=== PATIENT | female | born 1975 | race Caucasian/White ===

== ENCOUNTER 2016-10-07 17:22 | Emergency (ER) | payer SELFPAY ==
[~2016-10-07] VITALS: Ht 162.6 cm; Wt 136.1 kg
[2016-10-07] MEDS ORDERED: cefTRIAXone 1GM/50ML D5W 50 ML IV ONE (19:15)
[2016-10-07 19:44] LABS: Basophils # (auto) 0 uL; Basophils % (auto) 0.3 % (0.0-2.0); CONDITION Y; Eosinophils # (auto) 0 uL; Hematocrit 32.9 % (36.0-46.0); Lymphocytes % (auto) 20.3 % (10.0-50.0); Mean Corpuscular Hemoglobin 29.3 pg (28.0-32.0); Mean Corpuscular Hgb Conc. 33.3 g/dL (32.0-36.0); Mean Corpuscular Volume 87.8 fL (80.0-100.0); Mean Platelet Volume 8.2 fL (7.4-10.4); Monocytes # (auto) 0.4 uL; Monocytes % (auto) 8.8 % (0.0-12.0); Neutrophils # (auto) 3.4 uL; Neutrophils % (auto) 69.6 % (37.0-80.0); Platelet Count (auto) 265 10^3/uL (140-450); Red Cell Distribution Width 14.3 % (11.6-16.0); White Blood Cell 4.9 10^3/uL (4.4-10.8)
[2016-10-07 19:59] LABS: INR 0.98 (0.9-1.15); Partial Thromboplastin Time 27.8 sec (22.64-33.71); Prothrombin Time 10.7 sec (9.37-12.3)
[2016-10-07 20:09] LABS: BUN/Creatinine Ratio 11.1; Calcium 8.1 mg/dL (8.5-10.1); Potassium 3.8 mmol/L (3.5-5.1)
[2016-10-07 20:11] LABS: Bilirubin, Total 0.8 mg/dL (0.2-1.0); Total Protein 6.6 g/dL (6.4-8.2)
[2016-10-07 20:45] VITALS: BP 100/59
[2016-10-07 21:08] LABS: Urine Bilirubin Negative (Negative); Urine Blood Negative /uL (Negative); Urine Color Yellow (Yellow); Urine Glucose Normal (Normal); Urine Ketone Negative (Negative); Urine Mucus FEW (None Seen); Urine Nitrite Negative (Negative); Urine RBC <1 /hpf (0 - 4); Urine Squamous Epithelial Cell FEW /hpf (<5); Urine Urobilinogen Normal (Negative)
[2016-10-07 22:05] LABS: B-Type Natriuretic Peptide 19.1 pg/mL (0-100)
== END 2016-10-07 23:42 | disposition home or self-care (01) ==
LOC: ER 17:31
DX: L03.116 Cellulitis of left lower limb (principal); L03.115 Cellulitis of right lower limb; D64.9 Anemia, unspecified; E66.01 Morbid (severe) obesity due to excess calories; Z68.43 Body mass index [BMI] 50.0-59.9, adult
CPT/HCPCS: 36415; 71010; 80053; 80307; 81001; 83880; 84484; 85025; 85610; 85730; 93005; 96365; 99285; J0696

== ENCOUNTER 2016-12-06 23:26 | Emergency (ER) | payer MEDICAID ==
[~2016-12-06] VITALS: Ht 167.6 cm; Wt 81.6 kg
[2016-12-06 23:43] VITALS: BP 105/63
[2016-12-07 01:39] LABS: Basophils # (auto) 0 uL; Basophils % (auto) 0.6 % (0.0-2.0); Eosinophils # (auto) 0.1 uL; Eosinophils % (auto) 2.4 % (0.0-7.0); Hematocrit 38.7 % (36.0-46.0); Hemoglobin 12.8 g/dL (12.2-16.2); Lymphocytes # (auto) 1.7 uL; Lymphocytes % (auto) 29.1 % (10.0-50.0); Mean Corpuscular Hemoglobin 28.4 pg (28.0-32.0); Mean Corpuscular Hgb Conc. 33.1 g/dL (32.0-36.0); Mean Corpuscular Volume 85.8 fL (80.0-100.0); Mean Platelet Volume 7.6 fL (6.9-10.8); Monocytes # (auto) 0.4 uL; Monocytes % (auto) 7.3 % (0.0-12.0); Neutrophils # (auto) 3.5 uL; Neutrophils % (auto) 60.6 % (37.0-80.0); Nucleated Red Blood Cells % 0.1 %; Platelet Count (auto) 284 10^3/uL (140-450); Red Cell Distribution Width 14.7 % (11.8-14.3); White Blood Cell 5.8 10^3/uL (4.4-10.8)
[2016-12-07 01:50] LABS: Albumin 3.4 g/dL (3.4-5.0); BUN/Creatinine Ratio 16.7; Calcium 8.5 mg/dL (8.5-10.1); Potassium 3.7 mmol/L (3.5-5.1)
[2016-12-07 01:53] LABS: Bilirubin, Total 0.4 mg/dL (0.2-1.0); Total Protein 7.5 g/dL (6.4-8.2)
[2016-12-07 02:04] LABS: B-Type Natriuretic Peptide 10.5 pg/mL (0-100); Temperature: 22.4 C (20.0-25.0)
[2016-12-07] MEDS ORDERED: IBUPROFEN 600 MG TAB PO ONE (03:00)
[2016-12-07] MEDS ORDERED: BACLOFEN 10 MG TAB PO ONE (03:00)
== END 2016-12-07 03:40 | disposition home or self-care (01) ==
LOC: ER 23:29
DX: S96.912A Strain of unspecified muscle and tendon at ankle and foot level, left foot, initial encounter (principal); R60.0 Localized edema; M79.1 Myalgia; M54.5 Low back pain; E66.9 Obesity, unspecified; Z68.29 Body mass index [BMI] 29.0-29.9, adult; X50.3XXA Overexertion from repetitive movements, initial encounter; Y93.01 Activity, walking, marching and hiking; Y92.89 Other specified places as the place of occurrence of the external cause; Y99.8 Other external cause status
CPT/HCPCS: 36415; 71010; 80053; 83880; 85025

== ENCOUNTER 2016-12-09 02:07 | Emergency (ER) | payer MEDICAID ==
[~2016-12-09] VITALS: Ht 167.6 cm; Wt 129.3 kg
[2016-12-09 02:11] VITALS: BP 141/93
[2016-12-09 02:47] LABS: Basophils # (auto) 0 uL; Basophils % (auto) 0.4 % (0.0-2.0); Eosinophils # (auto) 0.1 uL; Eosinophils % (auto) 2.1 % (0.0-7.0); Hematocrit 36.6 % (36.0-46.0); Hemoglobin 11.8 g/dL (12.2-16.2); Lymphocytes # (auto) 1.6 uL; Lymphocytes % (auto) 27.4 % (10.0-50.0); Mean Corpuscular Hemoglobin 27.8 pg (28.0-32.0); Mean Corpuscular Hgb Conc. 32.3 g/dL (32.0-36.0); Mean Corpuscular Volume 86.1 fL (80.0-100.0); Mean Platelet Volume 7.4 fL (6.9-10.8); Monocytes # (auto) 0.5 uL; Monocytes % (auto) 8.6 % (0.0-12.0); Neutrophils # (auto) 3.6 uL; Neutrophils % (auto) 61.5 % (37.0-80.0); Platelet Count (auto) 252 10^3/uL (140-450); Red Cell Distribution Width 14.9 % (11.8-14.3); White Blood Cell 5.8 10^3/uL (4.4-10.8)
== END 2016-12-09 08:10 | disposition left against medical advice (07) ==
LOC: EDBD 02:07 → ER 02:12
DX: M79.89 Other specified soft tissue disorders (principal); Z53.21 Procedure and treatment not carried out due to patient leaving prior to being seen by health care provider
CPT/HCPCS: 36415; 85025

== ENCOUNTER 2016-12-30 03:15 | Emergency (ER) | payer MEDICAID ==
[~2016-12-30] VITALS: Ht 162.6 cm; Wt 113.4 kg
[2016-12-30 03:18] VITALS: BP 141/76
== END 2016-12-30 07:21 | disposition left against medical advice (07) ==
LOC: EDBD 03:15 → ER 03:15
DX: M79.605 Pain in left leg (principal); M79.604 Pain in right leg; Z53.21 Procedure and treatment not carried out due to patient leaving prior to being seen by health care provider

== ENCOUNTER 2017-01-02 20:54 | Emergency (ER) | payer MEDICAID ==
[~2017-01-02] VITALS: Ht 165.1 cm; Wt 127.0 kg
[2017-01-02 21:10] VITALS: BP 107/53
[2017-01-02 21:36] LABS: Basophils # (auto) 0 uL; Basophils % (auto) 0.5 % (0.0-2.0); Eosinophils # (auto) 0.1 uL; Eosinophils % (auto) 2.3 % (0.0-7.0); Hemoglobin 11.2 g/dL (12.2-16.2); Lymphocytes # (auto) 1.4 uL; Lymphocytes % (auto) 23.7 % (10.0-50.0); Mean Corpuscular Hemoglobin 28.4 pg (28.0-32.0); Mean Corpuscular Volume 86.2 fL (80.0-100.0); Mean Platelet Volume 7.4 fL (6.9-10.8); Monocytes # (auto) 0.5 uL; Monocytes % (auto) 8.3 % (0.0-12.0); Neutrophils # (auto) 3.9 uL; Neutrophils % (auto) 65.2 % (37.0-80.0); Platelet Count (auto) 232 10^3/uL (140-450); Red Cell Distribution Width 14.9 % (11.8-14.3)
[2017-01-02 21:54] LABS: Albumin 3.2 g/dL (3.4-5.0); BUN/Creatinine Ratio 19.8; Bilirubin, Total 0.3 mg/dL (0.2-1.0); Calcium 8.5 mg/dL (8.5-10.1); Potassium 3.6 mmol/L (3.5-5.1)
[2017-01-03 02:29] LABS: B-Type Natriuretic Peptide 12.34 pg/mL (0-100)
[2017-01-03 02:38] LABS: Temperature: 22.2 C (20.0-25.0)
== END 2017-01-03 05:52 | disposition left against medical advice (07) ==
LOC: EDBD 20:54 → ER 20:54
DX: M79.89 Other specified soft tissue disorders (principal); Z53.21 Procedure and treatment not carried out due to patient leaving prior to being seen by health care provider
CPT/HCPCS: 36415; 80053; 83880; 84702; 85025; 85379

== ENCOUNTER 2017-01-03 09:06 | Emergency (ER) | payer MEDICAID ==
[~2017-01-03] VITALS: Ht 167.6 cm; Wt 78.0 kg
[2017-01-03 10:30] VITALS: BP 146/94
[2017-01-03] MEDS ORDERED: SODIUM CHLORIDE 0.9% 1,000 ML IV ONE (12:05)
[2017-01-03 13:54] LABS: Basophils # (auto) 0 uL; Basophils % (auto) 0.5 % (0.0-2.0); Eosinophils # (auto) 0.1 uL; Eosinophils % (auto) 1.9 % (0.0-7.0); Hematocrit 35.6 % (36.0-46.0); Hemoglobin 11.7 g/dL (12.2-16.2); Lymphocytes # (auto) 1.7 uL; Mean Corpuscular Hemoglobin 28.2 pg (28.0-32.0); Mean Corpuscular Hgb Conc. 32.8 g/dL (32.0-36.0); Mean Corpuscular Volume 85.9 fL (80.0-100.0); Monocytes # (auto) 0.5 uL; Monocytes % (auto) 6.8 % (0.0-12.0); Neutrophils # (auto) 5.5 uL; Neutrophils % (auto) 69.8 % (37.0-80.0); Platelet Count (auto) 272 10^3/uL (140-450); Red Blood Cells 4.14 10^6/uL (4.0-5.20); Red Cell Distribution Width 14.6 % (11.8-14.3); White Blood Cell 7.9 10^3/uL (4.4-10.8)
[2017-01-03] MEDS ORDERED: cefTRIAXone W LIDOCAINE 1 GM IM IM ONE (14:30)
[2017-01-03] MEDS ORDERED: LIDOCAINE 1% HCL (LOCAL ANESTH.) INJ 20ML MDV ONE (14:36)
[2017-01-03] MEDS ORDERED: cefTRIAXone SOD 1,000 MG VL ONE (14:37)
== END 2017-01-03 15:14 | disposition home or self-care (01) ==
LOC: ER 09:06
DX: L03.115 Cellulitis of right lower limb (principal); E66.01 Morbid (severe) obesity due to excess calories; Z68.27 Body mass index [BMI] 27.0-27.9, adult
CPT/HCPCS: 36415; 71020; 83735; 84443; 85025; 85379; 93971; 96372; 99285; J0696; J2001

== ENCOUNTER 2017-01-09 23:01 | Emergency (ER) | payer MEDICAID ==
[~2017-01-09] VITALS: Ht 167.6 cm; Wt 132.4 kg
[2017-01-09] MEDS ORDERED: FUROSEMIDE 40 MG TAB PO ONE (23:30)
[2017-01-10 00:30] VITALS: BP 116/82
== END 2017-01-10 01:31 | disposition home or self-care (01) ==
LOC: ER 23:04
DX: R60.9 Edema, unspecified (principal)

== ENCOUNTER 2017-01-18 23:26 | Emergency (ER) | payer MEDICAID ==
[~2017-01-18] VITALS: Ht 162.6 cm; Wt 154.2 kg
[2017-01-19 00:24] LABS: Basophils # (auto) 0 uL; Basophils % (auto) 0.6 % (0.0-2.0); Eosinophils # (auto) 0.2 uL; Eosinophils % (auto) 3.3 % (0.0-7.0); Hematocrit 35.1 % (36.0-46.0); Hemoglobin 11.4 g/dL (12.2-16.2); Lymphocytes # (auto) 1.9 uL; Lymphocytes % (auto) 29.1 % (10.0-50.0); Mean Corpuscular Hemoglobin 27.7 pg (28.0-32.0); Mean Corpuscular Hgb Conc. 32.6 g/dL (32.0-36.0); Mean Corpuscular Volume 84.9 fL (80.0-100.0); Mean Platelet Volume 7.2 fL (6.9-10.8); Monocytes # (auto) 0.5 uL; Monocytes % (auto) 7.9 % (0.0-12.0); Neutrophils # (auto) 3.8 uL; Neutrophils % (auto) 59.1 % (37.0-80.0); Nucleated Red Blood Cells % 0.1 %; Platelet Count (auto) 308 10^3/uL (140-450); Red Cell Distribution Width 14.6 % (11.8-14.3); White Blood Cell 6.4 10^3/uL (4.4-10.8)
[2017-01-19 00:54] LABS: B-Type Natriuretic Peptide 8.13 pg/mL (0-100)
[2017-01-19 00:58] LABS: Temperature: 23.3 C (20.0-25.0)
[2017-01-19 05:25] VITALS: BP 171/106
== END 2017-01-19 07:20 | disposition home or self-care (01) ==
LOC: EDBD 23:26 → ER 23:45
DX: R60.0 Localized edema (principal); E66.01 Morbid (severe) obesity due to excess calories; Z68.43 Body mass index [BMI] 50.0-59.9, adult
CPT/HCPCS: 36415; 83880; 85025

== ENCOUNTER 2017-01-21 01:14 | Emergency (ER) | payer MEDICAID ==
[~2017-01-21] VITALS: Ht 157.5 cm; Wt 127.0 kg
[2017-01-21] MEDS ORDERED: SODIUM CHLORIDE 0.9% 1,000 ML IV ONE (08:13)
[2017-01-21] MEDS ORDERED: FUROSEMIDE 40 MG/4 ML VIAL IV ONE (08:15)
[2017-01-21] MEDS ORDERED: SPIRONOLACTONE 25 MG TAB PO ONE (08:15)
[2017-01-21 09:13] LABS: BUN/Creatinine Ratio 25.4; Calcium 8.5 mg/dL (8.5-10.1); Magnesium 2.1 mg/dL (1.6-2.6); Potassium 4.1 mmol/L (3.5-5.1)
[2017-01-21 09:44] LABS: Basophils # (auto) 0 uL; Basophils % (auto) 0.8 % (0.0-2.0); Eosinophils # (auto) 0.2 uL; Eosinophils % (auto) 3.1 % (0.0-7.0); Hematocrit 40.1 % (36.0-46.0); Lymphocytes # (auto) 1.6 uL; Lymphocytes % (auto) 25.7 % (10.0-50.0); Mean Corpuscular Hemoglobin 27.5 pg (28.0-32.0); Mean Corpuscular Hgb Conc. 32.3 g/dL (32.0-36.0); Mean Corpuscular Volume 85.1 fL (80.0-100.0); Mean Platelet Volume 7.9 fL (6.9-10.8); Monocytes # (auto) 0.5 uL; Monocytes % (auto) 7.9 % (0.0-12.0); Neutrophils % (auto) 62.5 % (37.0-80.0); Platelet Count (auto) 215 10^3/uL (140-450); Red Cell Distribution Width 14.5 % (11.8-14.3); White Blood Cell 6.3 10^3/uL (4.4-10.8)
[2017-01-21 09:51] LABS: Urine RBC None Seen /hpf (0 - 4)
[2017-01-21 10:22] LABS: Urine Bilirubin Negative (Negative); Urine Blood Negative /uL (Negative); Urine Color Yellow (Yellow); Urine Glucose Normal (Normal); Urine Ketone Negative (Negative); Urine Nitrite Negative (Negative); Urine Squamous Epithelial Cell FEW /hpf (<5); Urine Urobilinogen Normal (Negative)
[2017-01-21 10:41] LABS: Platelet Estimate Adequate; RBC Morphology Normal
[2017-01-21 12:00] VITALS: BP 116/62
== END 2017-01-21 12:53 | disposition home or self-care (01) ==
LOC: EDBD 01:14 → ER 01:14
DX: R60.0 Localized edema (principal); E66.01 Morbid (severe) obesity due to excess calories; Z68.43 Body mass index [BMI] 50.0-59.9, adult
CPT/HCPCS: 36415; 80048; 81001; 83735; 85025; 96361; 96374; 99285; J1940; J7030

== ENCOUNTER 2017-02-01 23:22 | Emergency (ER) | payer MEDICAID ==
[~2017-02-01] VITALS: Ht 177.8 cm; Wt 136.1 kg
[2017-02-02] MEDS ORDERED: SODIUM CHLORIDE 0.9% 1,000 ML IV ONE (06:43)
[2017-02-02] MEDS ORDERED: CLINDAMYCIN 900MG IV 50 ML IV ONE (06:45)
[2017-02-02 07:33] LABS: Basophils # (auto) 0 uL; Basophils % (auto) 0.8 % (0.0-2.0); Eosinophils # (auto) 0.1 uL; Eosinophils % (auto) 2.6 % (0.0-7.0); Hemoglobin 11.6 g/dL (12.2-16.2); Lymphocytes # (auto) 1.6 uL; Lymphocytes % (auto) 28.6 % (10.0-50.0); Mean Corpuscular Hemoglobin 27.9 pg (28.0-32.0); Mean Corpuscular Hgb Conc. 32.1 g/dL (32.0-36.0); Mean Platelet Volume 7.5 fL (6.9-10.8); Monocytes # (auto) 0.5 uL; Monocytes % (auto) 9.9 % (0.0-12.0); Neutrophils # (auto) 3.2 uL; Neutrophils % (auto) 58.1 % (37.0-80.0); Platelet Count (auto) 235 10^3/uL (140-450); White Blood Cell 5.6 10^3/uL (4.4-10.8)
[2017-02-02 08:13] VITALS: BP 109/52
[2017-02-02 10:00] LABS: BUN/Creatinine Ratio 21.3; Calcium 8.7 mg/dL (8.5-10.1); Magnesium 2.2 mg/dL (1.6-2.6); Potassium 4.5 mmol/L (3.5-5.1)
== END 2017-02-02 14:07 | disposition home or self-care (01) ==
LOC: EDBD 23:22 → ER 23:29
DX: L97.919 Non-pressure chronic ulcer of unspecified part of right lower leg with unspecified severity (principal); L03.115 Cellulitis of right lower limb
CPT/HCPCS: 36415; 80048; 83735; 85025; 96361; 96365; 96366; 99285; J3490

== ENCOUNTER 2017-02-03 09:47 | Emergency (ER) | payer MEDICAID ==
[~2017-02-03] VITALS: Ht 167.6 cm; Wt 131.1 kg
[2017-02-03 12:19] VITALS: BP 124/62
[2017-02-03] MEDS ORDERED: LIDOCAINE 1% HCL (LOCAL ANESTH.) INJ 20ML MDV ONE (12:57)
[2017-02-03] MEDS ORDERED: cefTRIAXone SOD 1,000 MG VL ONE (12:57)
[2017-02-03] MEDS ORDERED: cefTRIAXone W LIDOCAINE 1 GM IM IM ONE (13:00)
== END 2017-02-03 13:47 | disposition home or self-care (01) ==
LOC: ER 09:55
DX: L03.115 Cellulitis of right lower limb (principal)
CPT/HCPCS: 96372; 99283; J0696; J2001

== ENCOUNTER 2017-02-06 00:49 | Emergency (ER) | payer MEDICAID ==
[~2017-02-06] VITALS: Ht 170.2 cm; Wt 127.0 kg
[2017-02-06 02:58] LABS: Basophils # (auto) 0 uL; Basophils % (auto) 0.5 % (0.0-2.0); Eosinophils # (auto) 0.1 uL; Eosinophils % (auto) 2.5 % (0.0-7.0); Hematocrit 35.6 % (36.0-46.0); Hemoglobin 11.7 g/dL (12.2-16.2); Lymphocytes # (auto) 1.8 uL; Lymphocytes % (auto) 30.2 % (10.0-50.0); Mean Corpuscular Hemoglobin 27.9 pg (28.0-32.0); Mean Corpuscular Hgb Conc. 32.9 g/dL (32.0-36.0); Mean Corpuscular Volume 84.7 fL (80.0-100.0); Mean Platelet Volume 7.4 fL (6.9-10.8); Monocytes # (auto) 0.5 uL; Monocytes % (auto) 8.3 % (0.0-12.0); Neutrophils # (auto) 3.4 uL; Neutrophils % (auto) 58.5 % (37.0-80.0); Nucleated Red Blood Cells % 0.1 %; Platelet Count (auto) 244 10^3/uL (140-450); Red Cell Distribution Width 15.5 % (11.8-14.3); White Blood Cell 5.8 10^3/uL (4.4-10.8)
[2017-02-06 03:14] LABS: Albumin 3.4 g/dL (3.4-5.0); BUN/Creatinine Ratio 20.3; Bilirubin, Total 0.6 mg/dL (0.2-1.0); Calcium 8.6 mg/dL (8.5-10.1); Potassium 3.9 mmol/L (3.5-5.1); Total Protein 7.3 g/dL (6.4-8.2)
[2017-02-06 04:27] LABS: Temperature: 21.1 C (20.0-25.0)
[2017-02-06 08:20] VITALS: BP 96/42
[2017-02-06] MEDS ORDERED: FUROSEMIDE 20 MG TAB PO ONE (08:30)
== END 2017-02-06 08:49 | disposition home or self-care (01) ==
LOC: ER 00:50
DX: R60.0 Localized edema (principal)
CPT/HCPCS: 36415; 80053; 83880; 85025

== ENCOUNTER 2017-02-24 20:19 | Emergency (ER) | payer MEDICAID ==
[~2017-02-24] VITALS: Ht 160 cm; Wt 117.9 kg
[2017-02-24 20:50] VITALS: BP 128/47
[2017-02-24 22:37] LABS: Basophils # (auto) 0 uL; Basophils % (auto) 0.7 % (0.0-2.0); Eosinophils # (auto) 0.1 uL; Eosinophils % (auto) 2.6 % (0.0-7.0); Hematocrit 35.5 % (36.0-46.0); Hemoglobin 11.7 g/dL (12.2-16.2); Lymphocytes # (auto) 1.5 uL; Lymphocytes % (auto) 45.6 % (10.0-50.0); Mean Corpuscular Hemoglobin 27.8 pg (28.0-32.0); Mean Corpuscular Hgb Conc. 32.9 g/dL (32.0-36.0); Mean Corpuscular Volume 84.6 fL (80.0-100.0); Mean Platelet Volume 7.3 fL (6.9-10.8); Monocytes # (auto) 0.4 uL; Monocytes % (auto) 10.7 % (0.0-12.0); Neutrophils # (auto) 1.3 uL; Neutrophils % (auto) 40.4 % (37.0-80.0); Nucleated Red Blood Cells % 0.7 %; Platelet Count (auto) 218 10^3/uL (140-450); Red Cell Distribution Width 14.8 % (11.8-14.3); White Blood Cell 3.3 10^3/uL (4.4-10.8)
[2017-02-24 22:51] LABS: Albumin 3.2 g/dL (3.4-5.0); Calcium 8.2 mg/dL (8.5-10.1); Potassium 3.8 mmol/L (3.5-5.1)
[2017-02-24 22:52] LABS: Bilirubin, Total 0.2 mg/dL (0.2-1.0); Total Protein 7.3 g/dL (6.4-8.2)
== END 2017-02-25 07:54 | disposition left against medical advice (07) ==
LOC: ER 20:19
DX: M79.662 Pain in left lower leg (principal); M79.661 Pain in right lower leg; Z53.21 Procedure and treatment not carried out due to patient leaving prior to being seen by health care provider
CPT/HCPCS: 36415; 80053; 84702; 85025

== ENCOUNTER 2017-03-02 21:47 | Emergency (ER) | payer MEDICAID ==
[~2017-03-02] VITALS: Ht 157.5 cm; Wt 113.4 kg
[2017-03-03 02:09] LABS: Basophils # (auto) 0 uL; Basophils % (auto) 0.3 % (0.0-2.0); Eosinophils # (auto) 0.1 uL; Eosinophils % (auto) 1.9 % (0.0-7.0); Hematocrit 35.1 % (36.0-46.0); Hemoglobin 11.6 g/dL (12.2-16.2); Lymphocytes # (auto) 1.9 uL; Lymphocytes % (auto) 30.3 % (10.0-50.0); Mean Corpuscular Hemoglobin 27.6 pg (28.0-32.0); Mean Corpuscular Hgb Conc. 32.9 g/dL (32.0-36.0); Monocytes # (auto) 0.4 uL; Monocytes % (auto) 7.2 % (0.0-12.0); Neutrophils # (auto) 3.7 uL; Neutrophils % (auto) 60.3 % (37.0-80.0); Nucleated Red Blood Cells % 0.1 %; Platelet Count (auto) 275 10^3/uL (140-450); Red Blood Cells 4.18 10^6/uL (4.0-5.20); Red Cell Distribution Width 14.8 % (11.8-14.3); White Blood Cell 6.1 10^3/uL (4.4-10.8)
[2017-03-03 02:16] LABS: Albumin 3.3 g/dL (3.4-5.0); Calcium 8.4 mg/dL (8.5-10.1); Potassium 3.9 mmol/L (3.5-5.1)
[2017-03-03 02:19] LABS: BUN/Creatinine Ratio 28.4
[2017-03-03 02:22] LABS: Bilirubin, Total 0.3 mg/dL (0.2-1.0); Total Protein 7.3 g/dL (6.4-8.2)
[2017-03-03 08:58] VITALS: BP 106/58
== END 2017-03-03 14:53 | disposition left against medical advice (07) ==
LOC: ER 21:47
DX: M79.89 Other specified soft tissue disorders (principal); Z53.21 Procedure and treatment not carried out due to patient leaving prior to being seen by health care provider
CPT/HCPCS: 36415; 80053; 84702; 85025

== ENCOUNTER 2017-03-03 20:13 | Emergency (ER) | payer MEDICAID ==
[~2017-03-03] VITALS: Ht 165.1 cm; Wt 127.9 kg
[2017-03-03 21:13] LABS: Basophils # (auto) 0 uL; Basophils % (auto) 0.2 % (0.0-2.0); Eosinophils # (auto) 0.1 uL; Eosinophils % (auto) 2.5 % (0.0-7.0); Hematocrit 37.4 % (36.0-46.0); Hemoglobin 12.1 g/dL (12.2-16.2); Lymphocytes # (auto) 1.6 uL; Lymphocytes % (auto) 28.5 % (10.0-50.0); Mean Corpuscular Hemoglobin 27.4 pg (28.0-32.0); Mean Corpuscular Hgb Conc. 32.4 g/dL (32.0-36.0); Mean Corpuscular Volume 84.5 fL (80.0-100.0); Monocytes # (auto) 0.5 uL; Monocytes % (auto) 9.7 % (0.0-12.0); Neutrophils # (auto) 3.3 uL; Neutrophils % (auto) 59.1 % (37.0-80.0); Platelet Count (auto) 317 10^3/uL (140-450); Red Blood Cells 4.43 10^6/uL (4.0-5.20); Red Cell Distribution Width 15.1 % (11.8-14.3); White Blood Cell 5.6 10^3/uL (4.4-10.8)
[2017-03-03 21:26] LABS: Albumin 3.6 g/dL (3.4-5.0); BUN/Creatinine Ratio 28.7; Bilirubin, Total 0.3 mg/dL (0.2-1.0); Calcium 8.6 mg/dL (8.5-10.1); Potassium 4.1 mmol/L (3.5-5.1); Total Protein 7.8 g/dL (6.4-8.2)
[2017-03-04 08:18] VITALS: BP 101/55
[2017-03-04] MEDS ORDERED: FUROSEMIDE 20 MG TAB PO ONE (08:45)
[2017-03-04] MEDS ORDERED: SPIRONOLACTONE 25 MG TAB PO ONE (08:45)
[2017-03-04] MEDS ORDERED: FUROSEMIDE 20 MG TAB ONE (08:51)
== END 2017-03-04 10:23 | disposition home or self-care (01) ==
LOC: ER 20:13
DX: I87.2 Venous insufficiency (chronic) (peripheral) (principal); R60.0 Localized edema; E66.9 Obesity, unspecified; Z68.42 Body mass index [BMI] 45.0-49.9, adult
CPT/HCPCS: 36415; 80053; 81002; 83880; 85025

== ENCOUNTER 2017-03-05 17:37 | Emergency (ER) | payer MEDICAID ==
[2017-03-06 07:59] VITALS: BP 115/70
== END 2017-03-06 07:58 | disposition home or self-care (01) ==
LOC: ER 17:39
DX: L03.115 Cellulitis of right lower limb (principal); L03.116 Cellulitis of left lower limb

== ENCOUNTER 2017-03-09 23:24 | Inpatient (IN) | payer MEDICAID ==
[~2017-03-09] VITALS: Ht 157.5 cm; Wt 149.3 kg
[2017-03-10] MEDS ORDERED: CEFTRIAXONE SODIUM 2 GM in D5W 5% 50 ML IV ONE (01:45)
[2017-03-10] MEDS ORDERED: cefTRIAXone 1GM/10ml IVPUSH 20 ML IV ONE (02:07)
[2017-03-10 02:15] LABS: Basophils # (auto) 0 uL; Basophils % (auto) 0.4 % (0.0-2.0); Eosinophils # (auto) 0.1 uL; Eosinophils % (auto) 2.6 % (0.0-7.0); Hematocrit 34.6 % (36.0-46.0); Hemoglobin 11.4 g/dL (12.2-16.2); Lymphocytes # (auto) 1.7 uL; Lymphocytes % (auto) 29.5 % (10.0-50.0); Mean Corpuscular Hemoglobin 27.7 pg (28.0-32.0); Mean Corpuscular Volume 83.7 fL (80.0-100.0); Monocytes # (auto) 0.5 uL; Monocytes % (auto) 9.4 % (0.0-12.0); Neutrophils # (auto) 3.3 uL; Neutrophils % (auto) 58.1 % (37.0-80.0); Nucleated Red Blood Cells % 0.1 %; Platelet Count (auto) 298 10^3/uL (140-450); Red Blood Cells 4.14 10^6/uL (4.0-5.20); Red Cell Distribution Width 14.9 % (11.8-14.3); White Blood Cell 5.7 10^3/uL (4.4-10.8)
[2017-03-10 02:31] LABS: Alanine Aminotransferase 15 U/L (13-56); Albumin 3.2 g/dL (3.4-5.0); Anion Gap 6 (5-15); Aspartate Aminotransferase 9 U/L (15-37); BUN/Creatinine Ratio 28.1; Blood Urea Nitrogen 18 mg/dL (7-18); Calcium 8.2 mg/dL (8.5-10.1); Carbon Dioxide 28 mmol/L (21-32); Chloride 104 mmol/L (98-107); GFR African American 130 mL/min; GFR Non-African American 107 mL/min; Glucose 93 mg/dL (74-106); Sodium 138 mmol/L (136-145)
[2017-03-10 02:33] LABS: INR 0.92 (0.9-1.15); Partial Thromboplastin Time 27.9 sec (22.64-33.71)
[2017-03-10 02:36] LABS: Alkaline Phosphatase 55 U/L (45-117); Bilirubin, Total 0.4 mg/dL (0.2-1.0)
[2017-03-10] MEDS ORDERED: ACETAMINOPHEN 325 MG TAB PO PRN (06:45)
[2017-03-10] MEDS ORDERED: ONDANSETRON HCL 4 MG/2 ML VIAL IV PRN (06:45)
[2017-03-10] MEDS ORDERED: HYDROcodone-ACET 5/325MG TAB PO PRN (06:45)
[2017-03-10] MEDS: ENOXAPARIN SOD 40 MG/0.4 ML SYRINGE SC SCH (08:52)
[2017-03-10] MEDS: CLINDAMYCIN 600MG IV 50 ML IV SCH ×3 (08:52→23:55)
[2017-03-10] MEDS: FUROSEMIDE 40 MG TAB PO SCH (08:53)
[2017-03-10] MEDS: FAMOTIDINE 20 MG TAB PO SCH ×2 (08:53→21:46)
[2017-03-10 09:55] VITALS: BP 120/67
[2017-03-10 10:00] VITALS: BP 120/69
[2017-03-10 13:00] VITALS: BP 134/69
[2017-03-10 13:15] VITALS: BP 134/69
[2017-03-10 17:00] VITALS: BP 102/67
[2017-03-10 22:00] VITALS: BP 114/51
[2017-03-11 05:00] VITALS: BP 118/69
[2017-03-11 06:56] LABS: Urine Bacteria NONE SEEN /hpf (None Seen); Urine Blood 1+ /uL (Negative); Urine Specific Gravity 1.011 (1.001-1.035); Urine WBC <1 /hpf (0 - 5)
[2017-03-11 08:00] VITALS: BP 99/55
[2017-03-11 08:10] VITALS: BP 99/55
[2017-03-11 08:57] LABS: Basophils # (auto) 0 uL; Basophils % (auto) 0.3 % (0.0-2.0); Eosinophils # (auto) 0.1 uL; Eosinophils % (auto) 2.4 % (0.0-7.0); Hematocrit 37.4 % (36.0-46.0); Hemoglobin 12.3 g/dL (12.2-16.2); Lymphocytes # (auto) 1.4 uL; Mean Corpuscular Hemoglobin 27.7 pg (28.0-32.0); Mean Corpuscular Hgb Conc. 32.8 g/dL (32.0-36.0); Mean Corpuscular Volume 84.4 fL (80.0-100.0); Monocytes # (auto) 0.4 uL; Monocytes % (auto) 8.7 % (0.0-12.0); Neutrophils % (auto) 60.6 % (37.0-80.0); Nucleated Red Blood Cells % 0.2 %; Platelet Count (auto) 305 10^3/uL (140-450); Red Blood Cells 4.43 10^6/uL (4.0-5.20); Red Cell Distribution Width 15.1 % (11.8-14.3); White Blood Cell 4.9 10^3/uL (4.4-10.8)
[2017-03-11] MEDS: CLINDAMYCIN 600MG IV 50 ML IV SCH ×2 (08:59→15:03)
[2017-03-11] MEDS: BOOST PLUS 8 ounce PO SCH ×3 (09:00→17:45)
[2017-03-11] MEDS: FUROSEMIDE 40 MG TAB PO SCH (09:00)
[2017-03-11] MEDS: cefTRIAXone 1GM/10ml IVPUSH 10 ML IV SCH (09:00)
[2017-03-11] MEDS: FAMOTIDINE 20 MG TAB PO SCH ×2 (09:01→22:03)
[2017-03-11] MEDS: ENOXAPARIN SOD 40 MG/0.4 ML SYRINGE SC SCH (09:01)
[2017-03-11 09:28] LABS: Albumin 3.2 g/dL (3.4-5.0); BUN/Creatinine Ratio 21.8; Bilirubin, Total 0.5 mg/dL (0.2-1.0); Calcium 8.5 mg/dL (8.5-10.1); Potassium 4.1 mmol/L (3.5-5.1); Total Protein 7.2 g/dL (6.4-8.2)
[2017-03-11 12:00] VITALS: BP 111/59
[2017-03-11] MEDS ORDERED: SPIR25TA89 PO (16:13)
[2017-03-11] MEDS ORDERED: FURO40TA PO (16:13)
[2017-03-11 17:13] VITALS: BP 110/84
[2017-03-11 22:00] VITALS: BP 121/60
[2017-03-12] MEDS: CLINDAMYCIN 600MG IV 50 ML IV SCH ×2 (00:22→08:31)
[2017-03-12 04:42] VITALS: BP 132/70
[2017-03-12 07:56] LABS: Basophils # (auto) 0 uL; Basophils % (auto) 0.4 % (0.0-2.0); Eosinophils # (auto) 0.2 uL; Eosinophils % (auto) 3.7 % (0.0-7.0); Hematocrit 33.9 % (36.0-46.0); Hemoglobin 11.1 g/dL (12.2-16.2); Lymphocytes # (auto) 1.2 uL; Lymphocytes % (auto) 29.6 % (10.0-50.0); Mean Corpuscular Hemoglobin 27.6 pg (28.0-32.0); Mean Corpuscular Hgb Conc. 32.8 g/dL (32.0-36.0); Mean Corpuscular Volume 84.3 fL (80.0-100.0); Monocytes # (auto) 0.4 uL; Monocytes % (auto) 9.6 % (0.0-12.0); Neutrophils # (auto) 2.4 uL; Neutrophils % (auto) 56.7 % (37.0-80.0); Nucleated Red Blood Cells % 0.2 %; Platelet Count (auto) 251 10^3/uL (140-450); Red Blood Cells 4.02 10^6/uL (4.0-5.20); Red Cell Distribution Width 15.3 % (11.8-14.3); White Blood Cell 4.2 10^3/uL (4.4-10.8)
[2017-03-12 08:00] VITALS: BP 120/59
[2017-03-12 08:16] LABS: BUN/Creatinine Ratio 23.8; Calcium 8.3 mg/dL (8.5-10.1); Potassium 4.3 mmol/L (3.5-5.1)
[2017-03-12] MEDS: cefTRIAXone 1GM/10ml IVPUSH 10 ML IV SCH (08:32)
[2017-03-12] MEDS: BOOST PLUS 8 ounce PO SCH ×3 (08:32→18:23)
[2017-03-12 09:00] VITALS: BP 120/59
[2017-03-12] MEDS: FUROSEMIDE 40 MG TAB PO SCH (10:04)
[2017-03-12] MEDS: ENOXAPARIN SOD 40 MG/0.4 ML SYRINGE SC SCH (10:04)
[2017-03-12] MEDS: FAMOTIDINE 20 MG TAB PO SCH ×2 (10:04→22:59)
[2017-03-12] MEDS ORDERED: CLINDAMYCIN HCL 150 MG CAP PO ONE (15:00)
[2017-03-12] MEDS ORDERED: CLINDAMYCIN 600MG IV 50 ML IV ONE (15:00)
[2017-03-12 17:15] VITALS: BP 110/63
[2017-03-12] MEDS: CLINDAMYCIN HCL 150 MG CAP PO SCH (20:25)
[2017-03-12 22:00] VITALS: BP 112/65
[2017-03-13 04:56] VITALS: BP 132/68
[2017-03-13 05:52] LABS: Basophils # (auto) 0 uL; Basophils % (auto) 0.6 % (0.0-2.0); Eosinophils # (auto) 0.1 uL; Eosinophils % (auto) 2.3 % (0.0-7.0); Hematocrit 37.2 % (36.0-46.0); Hemoglobin 12.2 g/dL (12.2-16.2); Lymphocytes # (auto) 1.6 uL; Lymphocytes % (auto) 28.1 % (10.0-50.0); Mean Corpuscular Hemoglobin 27.8 pg (28.0-32.0); Mean Corpuscular Hgb Conc. 32.8 g/dL (32.0-36.0); Mean Corpuscular Volume 84.9 fL (80.0-100.0); Monocytes # (auto) 0.5 uL; Neutrophils # (auto) 3.6 uL; Nucleated Red Blood Cells % 0.1 %; Platelet Count (auto) 308 10^3/uL (140-450); Red Blood Cells 4.38 10^6/uL (4.0-5.20); Red Cell Distribution Width 14.9 % (11.8-14.3); White Blood Cell 5.8 10^3/uL (4.4-10.8)
[2017-03-13] MEDS: CLINDAMYCIN HCL 150 MG CAP PO SCH ×2 (05:56→14:00)
[2017-03-13 06:20] LABS: Albumin 3.5 g/dL (3.4-5.0); BUN/Creatinine Ratio 19.2; Calcium 8.9 mg/dL (8.5-10.1); Potassium 3.7 mmol/L (3.5-5.1)
[2017-03-13 06:23] LABS: Bilirubin, Total 0.4 mg/dL (0.2-1.0); Total Protein 7.5 g/dL (6.4-8.2)
[2017-03-13 09:00] VITALS: BP 122/59
[2017-03-13] MEDS: cefTRIAXone 1GM/10ml IVPUSH 10 ML IV SCH (09:00)
[2017-03-13] MEDS: FUROSEMIDE 40 MG TAB PO SCH (10:31)
[2017-03-13] MEDS: ENOXAPARIN SOD 40 MG/0.4 ML SYRINGE SC SCH (10:32)
[2017-03-13] MEDS: FAMOTIDINE 20 MG TAB PO SCH (10:32)
[2017-03-13] MEDS: BOOST PLUS 8 ounce PO SCH ×2 (10:35→13:57)
[2017-03-13 12:00] VITALS: BP 122/59
[2017-03-13 13:00] VITALS: BP 100/57
== END 2017-03-13 14:30 | disposition home or self-care (01) | DRG 383 ==
LOC: ER 23:24 → EDBD 23:24 → OVERFLOW 23:25 → WEST WING 03-10 08:08
PROVIDERS: ADMIT Nurse Practitioner; ATTEND Internal Medicine
DX: L03.115 Cellulitis of right lower limb (principal); I50.32 Chronic diastolic (congestive) heart failure; E44.0 Moderate protein-calorie malnutrition; Z68.44 Body mass index [BMI] 60.0-69.9, adult; E66.01 Morbid (severe) obesity due to excess calories; D64.9 Anemia, unspecified; L03.116 Cellulitis of left lower limb; Z59.0 Homelessness; E88.09 Other disorders of plasma-protein metabolism, not elsewhere classified
CPT/HCPCS: 36415; 71045; 80048; 80053; 81001; 81025; 83880; 84484; 85025; 85610; 85730; 87040; 93306; 93970; 96365; 96375; J0696; J3490; J7060

== ENCOUNTER 2017-03-21 23:27 | Emergency (ER) | payer MEDICAID ==
[~2017-03-21] VITALS: Ht 167.6 cm; Wt 128.8 kg
[~2017-03-21 23:27] MED LIST: FURO40TA PO; SPIR25TA89 PO
[2017-03-22 00:17] LABS: Basophils # (auto) 0 uL; Basophils % (auto) 0.6 % (0.0-2.0); Eosinophils # (auto) 0.1 uL; Eosinophils % (auto) 2.3 % (0.0-7.0); Hematocrit 35.5 % (36.0-46.0); Hemoglobin 11.7 g/dL (12.2-16.2); Lymphocytes # (auto) 1.8 uL; Lymphocytes % (auto) 32.6 % (10.0-50.0); Mean Corpuscular Hemoglobin 27.9 pg (28.0-32.0); Mean Corpuscular Volume 84.5 fL (80.0-100.0); Monocytes # (auto) 0.4 uL; Monocytes % (auto) 7.7 % (0.0-12.0); Neutrophils # (auto) 3.1 uL; Neutrophils % (auto) 56.8 % (37.0-80.0); Nucleated Red Blood Cells % 0.1 %; Platelet Count (auto) 269 10^3/uL (140-450); Red Cell Distribution Width 15.4 % (11.8-14.3); White Blood Cell 5.5 10^3/uL (4.4-10.8)
[2017-03-22 00:35] LABS: Albumin 3.5 g/dL (3.4-5.0); BUN/Creatinine Ratio 23.9; Calcium 8.9 mg/dL (8.5-10.1); Potassium 3.8 mmol/L (3.5-5.1)
[2017-03-22 00:38] LABS: Bilirubin, Total 0.4 mg/dL (0.2-1.0); Total Protein 7.1 g/dL (6.4-8.2)
[2017-03-22] MEDS ORDERED: FUROSEMIDE 40 MG TAB PO ONE (03:45)
[2017-03-22] MEDS ORDERED: cefTRIAXone SOD 1,000 MG VL IM ONE (03:45)
[2017-03-22 04:00] VITALS: BP 100/63
== END 2017-03-22 04:03 | disposition home or self-care (01) ==
LOC: ER 23:27
DX: L03.116 Cellulitis of left lower limb (principal); L03.115 Cellulitis of right lower limb; R60.0 Localized edema; Z59.0 Homelessness
CPT/HCPCS: 36415; 80053; 83880; 84702; 85025; 96372; 99284; J0696

== ENCOUNTER 2017-06-10 22:01 | Emergency (ER) | payer SELFPAY ==
[~2017-06-10] VITALS: Ht 162.6 cm; Wt 108.9 kg
[2017-06-10 22:08] VITALS: BP 130/72
== END 2017-06-11 06:31 | disposition left against medical advice (07) ==
LOC: EDBD 22:01 → ER 22:01
DX: M79.605 Pain in left leg (principal); M79.604 Pain in right leg; Z53.21 Procedure and treatment not carried out due to patient leaving prior to being seen by health care provider

== ENCOUNTER 2017-07-05 06:36 | Emergency (ER) | payer SELFPAY ==
[~2017-07-05] VITALS: Ht 165.1 cm; Wt 129.3 kg
[2017-07-05 08:09] LABS: Basophils # (auto) 0.1 uL; Basophils % (auto) 0.7 % (0.0-2.0); Eosinophils # (auto) 0 uL; Eosinophils % (auto) 0.6 % (0.0-7.0); Hematocrit 40.8 % (36.0-46.0); Hemoglobin 13.7 g/dL (12.2-16.2); Lymphocytes # (auto) 1.6 uL; Lymphocytes % (auto) 19.3 % (10.0-50.0); Mean Corpuscular Hemoglobin 28.6 pg (28.0-32.0); Mean Corpuscular Hgb Conc. 33.7 g/dL (32.0-36.0); Mean Corpuscular Volume 84.9 fL (80.0-100.0); Monocytes # (auto) 0.9 uL; Monocytes % (auto) 10.4 % (0.0-12.0); Neutrophils # (auto) 5.7 uL; Platelet Count (auto) 272 10^3/uL (140-450); Red Cell Distribution Width 15.7 % (11.8-14.3); White Blood Cell 8.3 10^3/uL (4.4-10.8)
[2017-07-05 08:28] LABS: Albumin 3.1 g/dL (3.4-5.0); BUN/Creatinine Ratio 23.7; Calcium 8.4 mg/dL (8.5-10.1); Potassium 3.5 mmol/L (3.5-5.1)
[2017-07-05 08:31] LABS: Total Protein 7.2 g/dL (6.4-8.2)
[2017-07-05 12:30] VITALS: BP 106/58
== END 2017-07-05 12:57 | disposition home or self-care (01) ==
LOC: ER 06:36
DX: R10.30 Lower abdominal pain, unspecified (principal); M79.1 Myalgia; I50.9 Heart failure, unspecified; R11.2 Nausea with vomiting, unspecified; Z79.899 Other long term (current) drug therapy
CPT/HCPCS: 36415; 80053; 85025

== ENCOUNTER 2017-08-16 04:04 | Emergency (ER) | payer SELFPAY ==
[~2017-08-16] VITALS: Ht 160 cm; Wt 122.5 kg
[2017-08-16 06:00] LABS: Basophils # (auto) 0 uL; Basophils % (auto) 0.2 % (0.0-2.0); Eosinophils # (auto) 0.1 uL; Eosinophils % (auto) 1.2 % (0.0-7.0); Hematocrit 38.7 % (36.0-46.0); Hemoglobin 12.7 g/dL (12.2-16.2); Lymphocytes # (auto) 1.7 uL; Lymphocytes % (auto) 19.1 % (10.0-50.0); Mean Corpuscular Hgb Conc. 32.8 g/dL (32.0-36.0); Mean Corpuscular Volume 88.3 fL (80.0-100.0); Monocytes # (auto) 0.7 uL; Monocytes % (auto) 7.8 % (0.0-12.0); Neutrophils # (auto) 6.4 uL; Neutrophils % (auto) 71.7 % (37.0-80.0); Platelet Count (auto) 244 10^3/uL (140-450); Red Blood Cells 4.39 10^6/uL (4.0-5.20); Red Cell Distribution Width 15.2 % (11.8-14.3); White Blood Cell 8.9 10^3/uL (4.4-10.8)
[2017-08-16 06:11] LABS: Albumin 3.4 g/dL (3.4-5.0); BUN/Creatinine Ratio 18.1; Calcium 8.4 mg/dL (8.5-10.1); Potassium 3.6 mmol/L (3.5-5.1)
[2017-08-16 06:14] LABS: Bilirubin, Total 0.6 mg/dL (0.2-1.0); Total Protein 7.4 g/dL (6.4-8.2)
[2017-08-16 06:37] VITALS: BP 149/80
== END 2017-08-16 10:33 | disposition left against medical advice (07) ==
LOC: EDBD 04:04 → ER 04:12
DX: M79.89 Other specified soft tissue disorders (principal); I50.9 Heart failure, unspecified; F17.210 Nicotine dependence, cigarettes, uncomplicated; F15.10 Other stimulant abuse, uncomplicated; Z59.0 Homelessness
CPT/HCPCS: 36415; 80053; 83880; 85025

== ENCOUNTER 2018-02-09 08:54 | Inpatient (IN) | payer SELFPAY ==
[~2018-02-09] VITALS: Ht 165.1 cm; Wt 142.6 kg
[~2018-02-09 08:54] MED LIST changes: +SPIR25TA8 PO; -SPIR25TA89 PO
[2018-02-09 10:17] LABS: Basophils # (auto) 0 uL; Basophils % (auto) 0.5 % (0.0-2.0); Eosinophils # (auto) 0.2 uL; Eosinophils % (auto) 2.9 % (0.0-7.0); Hematocrit 35.8 % (36.0-46.0); Lymphocytes # (auto) 1.2 uL; Mean Corpuscular Hemoglobin 28.9 pg (28.0-32.0); Mean Corpuscular Hgb Conc. 33.5 g/dL (32.0-36.0); Mean Corpuscular Volume 86.5 fL (80.0-100.0); Monocytes # (auto) 0.5 uL; Monocytes % (auto) 8.8 % (0.0-12.0); Neutrophils # (auto) 4.2 uL; Neutrophils % (auto) 68.8 % (37.0-80.0); Nucleated Red Blood Cells % 0.1 %; Platelet Count (auto) 239 10^3/uL (140-450); Red Blood Cells 4.14 10^6/uL (4.0-5.20); Red Cell Distribution Width 14.3 % (11.8-14.3); White Blood Cell 6.1 10^3/uL (4.4-10.8)
[2018-02-09 10:33] LABS: Albumin 3.4 g/dL (3.4-5.0); BUN/Creatinine Ratio 26.6; Calcium 8.6 mg/dL (8.5-10.1); Potassium 4.1 mmol/L (3.5-5.1)
[2018-02-09 10:36] LABS: Bilirubin, Total 0.6 mg/dL (0.2-1.0); Total Protein 7.6 g/dL (6.4-8.2)
[2018-02-09 12:47] LABS: INR 0.89 (0.9-1.15); Partial Thromboplastin Time 29.4 sec (23.78-33.04); Prothrombin Time 9.6 sec (9.27-12.13)
[2018-02-09] MEDS ORDERED: traMADol HCL 50 MG TAB PO PRN (15:15)
[2018-02-09] MEDS ORDERED: PROMETHAZINE HCL 25 MG/ML 1ML IV PRN (15:15)
[2018-02-09] MEDS ORDERED: LACTULOSE 20Gm/30ML SOLN PO PRN (15:15)
[2018-02-09] MEDS ORDERED: TEMAZEPAM 15 MG CAP PO PRN (15:15)
[2018-02-09] MEDS ORDERED: LORazepam 0.5 MG TAB PO PRN (15:15)
[2018-02-09] MEDS ORDERED: KETOROLAC TROMETH 30 MG/ML 1ML VIAL IV PRN (15:15)
[2018-02-09] MEDS ORDERED: ACETAMINOPHEN 500 MG TAB PO PRN (15:15)
[2018-02-09] MEDS: SODIUM CHLORIDE 0.9% 1,000 ML IV SCH (16:27)
[2018-02-09 17:25] VITALS: BP 131/72
[2018-02-09 22:00] VITALS: BP 100/56
[2018-02-09] MEDS: CLINDAMYCIN 600MG IV 50 ML IV SCH (22:22)
[2018-02-10] MEDS: SODIUM CHLORIDE 0.9% 1,000 ML IV SCH ×2 (02:52→14:30)
[2018-02-10 05:00] VITALS: BP 129/53
[2018-02-10] MEDS: CLINDAMYCIN 600MG IV 50 ML IV SCH ×3 (05:19→22:23)
[2018-02-10 06:26] LABS: Cholesterol 100 mg/dL (< 200); HDL Cholesterol 40 mg/dL (40-59); LDL Cholesterol 70 mg/dL (< 100); Triglycerides 54 mg/dL (< 150)
[2018-02-10] MEDS: cefTRIAXone 1GM/50ML D5W 50 ML IV SCH (08:51)
[2018-02-10 09:00] VITALS: BP 118/51
[2018-02-10] MEDS: PANTOPRAZOLE 40 MG TAB PO SCH (09:00)
[2018-02-10] MEDS: ENOXAPARIN SOD 40 MG/0.4 ML SYRINGE SC SCH (09:00)
[2018-02-10 13:00] VITALS: BP 125/68
[2018-02-10 17:00] VITALS: BP 128/68
[2018-02-10 22:00] VITALS: BP 115/42
[2018-02-11 04:51] VITALS: BP 127/65
[2018-02-11] MEDS: CLINDAMYCIN 600MG IV 50 ML IV SCH ×3 (06:18→23:45)
[2018-02-11] MEDS: SODIUM CHLORIDE 0.9% 1,000 ML IV SCH ×2 (07:10→14:57)
[2018-02-11 09:00] VITALS: BP 124/52
[2018-02-11] MEDS: cefTRIAXone 1GM/50ML D5W 50 ML IV SCH (09:00)
[2018-02-11] MEDS: ENOXAPARIN SOD 40 MG/0.4 ML SYRINGE SC SCH (10:00)
[2018-02-11] MEDS: PANTOPRAZOLE 40 MG TAB PO SCH (10:00)
[2018-02-11 13:00] VITALS: BP 71/50
[2018-02-11 17:00] VITALS: BP 129/68
[2018-02-11 18:39] LABS: Urine WBC None Seen /hpf (0 - 5)
[2018-02-11 18:54] LABS: Urine Bacteria NONE SEEN /hpf (None Seen); Urine Blood Negative /uL (Negative); Urine Specific Gravity 1.014 (1.001-1.035)
[2018-02-11 19:01] LABS: Alcohol, Urine < 3.0 mg/dL (0-5); Amphetamine Screen, Urine NEGATIVE (NEGATIVE); Barbiturate Scree,Urine NEGATIVE (NEGATIVE); Benzodiazephine Screen, Urine NEGATIVE (NEGATIVE); Cannabinoid Screen, Urine NEGATIVE (NEGATIVE); Cocaine Screen, Urine NEGATIVE (NEGATIVE); Opiate Scree,Urine NEGATIVE (NEGATIVE); Phencyclidine Screen, Urine NEGATIVE (NEGATIVE)
[2018-02-11 22:00] VITALS: BP 116/60
[2018-02-12 05:00] VITALS: BP 129/54
[2018-02-12] MEDS: CLINDAMYCIN 600MG IV 50 ML IV SCH ×3 (05:24→21:43)
[2018-02-12 08:58] VITALS: BP 120/72
[2018-02-12] MEDS: cefTRIAXone 1GM/50ML D5W 50 ML IV SCH (09:00)
[2018-02-12] MEDS: SODIUM CHLORIDE 0.9% 1,000 ML IV SCH (10:29)
[2018-02-12] MEDS: ENOXAPARIN SOD 40 MG/0.4 ML SYRINGE SC SCH (10:29)
[2018-02-12] MEDS: PANTOPRAZOLE 40 MG TAB PO SCH (10:29)
[2018-02-12 12:57] VITALS: BP 123/71
[2018-02-12] MEDS ORDERED: traMADol HCL 50 MG TAB PO PRN (13:15)
[2018-02-12 17:23] VITALS: BP 128/79
[2018-02-12 21:19] VITALS: BP 133/60
[2018-02-13 05:25] VITALS: BP 102/50
[2018-02-13 05:58] LABS: Basophils # (auto) 0 uL; Basophils % (auto) 0.2 % (0.0-2.0); Eosinophils # (auto) 0.2 uL; Eosinophils % (auto) 3.7 % (0.0-7.0); Hemoglobin 11.7 g/dL (12.2-16.2); Lymphocytes # (auto) 1.3 uL; Lymphocytes % (auto) 28.3 % (10.0-50.0); Mean Corpuscular Hemoglobin 28.8 pg (28.0-32.0); Mean Corpuscular Hgb Conc. 33.4 g/dL (32.0-36.0); Mean Corpuscular Volume 86.3 fL (80.0-100.0); Monocytes # (auto) 0.4 uL; Monocytes % (auto) 8.5 % (0.0-12.0); Neutrophils # (auto) 2.8 uL; Neutrophils % (auto) 59.3 % (37.0-80.0); Nucleated Red Blood Cells % 0.1 %; Platelet Count (auto) 230 10^3/uL (140-450); Red Blood Cells 4.06 10^6/uL (4.0-5.20); Red Cell Distribution Width 14.3 % (11.8-14.3); White Blood Cell 4.7 10^3/uL (4.4-10.8)
[2018-02-13] MEDS: CLINDAMYCIN 600MG IV 50 ML IV SCH ×2 (06:06→14:00)
[2018-02-13 06:13] LABS: Potassium 4.1 mmol/L (3.5-5.1)
[2018-02-13 06:17] LABS: BUN/Creatinine Ratio 20.3; Calcium 8.2 mg/dL (8.5-10.1)
[2018-02-13 08:07] VITALS: BP 128/76
[2018-02-13] MEDS: ENOXAPARIN SOD 40 MG/0.4 ML SYRINGE SC SCH (10:49)
[2018-02-13] MEDS: cefTRIAXone 1GM/50ML D5W 50 ML IV SCH (10:49)
[2018-02-13] MEDS: PANTOPRAZOLE 40 MG TAB PO SCH (10:49)
[2018-02-13] MEDS ORDERED: SACC250C PO (12:12)
[2018-02-13] MEDS ORDERED: CLIN1CAP4 PO (12:12)
[2018-02-13 12:51] VITALS: BP 126/74
[2018-02-13 16:58] VITALS: BP 128/77
[2018-02-13 18:11] VITALS: BP 126/74
== END 2018-02-13 20:15 | disposition home or self-care (01) | DRG 603 ==
LOC: ER 08:54 → OVERFLOW 15:13 → WEST WING 16:51
PROVIDERS: ADMIT Internal Medicine; ATTEND Internal Medicine
DX: L03.115 Cellulitis of right lower limb (principal); I50.32 Chronic diastolic (congestive) heart failure; Z68.43 Body mass index [BMI] 50.0-59.9, adult; E66.01 Morbid (severe) obesity due to excess calories; L03.116 Cellulitis of left lower limb; F17.210 Nicotine dependence, cigarettes, uncomplicated; F41.9 Anxiety disorder, unspecified; D64.9 Anemia, unspecified; F32.9 Major depressive disorder, single episode, unspecified; I87.2 Venous insufficiency (chronic) (peripheral); Z59.0 Homelessness; Z80.3 Family history of malignant neoplasm of breast; Z83.3 Family history of diabetes mellitus
CPT/HCPCS: 36415; 71046; 80048; 80053; 80061; 80307; 81001; 83735; 85025; 85379; 85610; 85652; 85730; 87040; 93970; 96361; 96365; 96375; G0378; J0696; J1885; J3490

== ENCOUNTER 2018-02-13 22:57 | Emergency (ER) | payer MEDICAID ==
[~2018-02-13] VITALS: Ht 162.6 cm; Wt 136.1 kg
[~2018-02-13 22:57] MED LIST changes: +CLIN1CAP4 PO; +SACC250C PO
[2018-02-13 23:11] VITALS: BP 117/87
== END 2018-02-14 01:35 | disposition home or self-care (01) ==
LOC: ER 23:03
DX: L85.3 Xerosis cutis (principal); F17.210 Nicotine dependence, cigarettes, uncomplicated; F15.90 Other stimulant use, unspecified, uncomplicated; Z59.0 Homelessness; Z79.899 Other long term (current) drug therapy

== ENCOUNTER 2018-02-16 21:23 | Emergency (ER) | payer MEDICAID ==
[~2018-02-16] VITALS: Ht 172.7 cm; Wt 181.4 kg
[2018-02-17] MEDS ORDERED: HYDROcodone-ACET 5/325MG TAB PO ONE (02:45)
[2018-02-17 03:19] VITALS: BP 158/83
== END 2018-02-17 03:52 | disposition home or self-care (01) ==
LOC: EDBD 21:23 → ER 21:24
DX: L03.116 Cellulitis of left lower limb (principal); L03.115 Cellulitis of right lower limb; E66.9 Obesity, unspecified; F17.210 Nicotine dependence, cigarettes, uncomplicated; F15.10 Other stimulant abuse, uncomplicated; I50.9 Heart failure, unspecified; Z59.0 Homelessness; Z68.44 Body mass index [BMI] 60.0-69.9, adult

== ENCOUNTER 2018-03-01 08:43 | Emergency (ER) | payer MEDICAID ==
[~2018-03-01] VITALS: Ht 167.6 cm; Wt 154.0 kg
[2018-03-01 09:33] VITALS: BP 121/77
== END 2018-03-01 11:13 | disposition left against medical advice (07) ==
LOC: ER 08:43
DX: M79.672 Pain in left foot (principal); M79.671 Pain in right foot; Z53.21 Procedure and treatment not carried out due to patient leaving prior to being seen by health care provider

== ENCOUNTER 2018-03-02 19:15 | Emergency (ER) | payer MEDICAID ==
[~2018-03-02] VITALS: Ht 165.1 cm; Wt 155.1 kg
[2018-03-02 22:47] LABS: Basophils # (auto) 0 uL; Basophils % (auto) 0.4 % (0.0-2.0); Eosinophils # (auto) 0.2 uL; Eosinophils % (auto) 2.7 % (0.0-7.0); Hematocrit 36.7 % (36.0-46.0); Hemoglobin 12.1 g/dL (12.2-16.2); Lymphocytes # (auto) 1.4 uL; Lymphocytes % (auto) 23.2 % (10.0-50.0); Mean Corpuscular Hemoglobin 28.5 pg (28.0-32.0); Mean Corpuscular Hgb Conc. 32.9 g/dL (32.0-36.0); Mean Corpuscular Volume 86.7 fL (80.0-100.0); Monocytes # (auto) 0.5 uL; Monocytes % (auto) 7.9 % (0.0-12.0); Neutrophils # (auto) 3.8 uL; Neutrophils % (auto) 65.8 % (37.0-80.0); Platelet Count (auto) 283 10^3/uL (140-450); Red Blood Cells 4.23 10^6/uL (4.0-5.20); Red Cell Distribution Width 14.7 % (11.8-14.3); White Blood Cell 5.8 10^3/uL (4.4-10.8)
[2018-03-02 23:04] LABS: Albumin 3.4 g/dL (3.4-5.0); BUN/Creatinine Ratio 22.8; Calcium 8.6 mg/dL (8.5-10.1); Potassium 3.6 mmol/L (3.5-5.1)
[2018-03-02 23:08] LABS: Bilirubin, Total 0.4 mg/dL (0.2-1.0); Total Protein 7.6 g/dL (6.4-8.2)
[2018-03-03 06:16] VITALS: BP 104/50
== END 2018-03-03 06:33 | disposition home or self-care (01) ==
LOC: ER 19:15
DX: L03.116 Cellulitis of left lower limb (principal); L03.115 Cellulitis of right lower limb; F12.90 Cannabis use, unspecified, uncomplicated; F15.90 Other stimulant use, unspecified, uncomplicated; Z79.899 Other long term (current) drug therapy
CPT/HCPCS: 36415; 80053; 83880; 85025

== ENCOUNTER 2018-03-06 19:00 | Emergency (ER) | payer MEDICAID ==
[~2018-03-06] VITALS: Ht 157.5 cm; Wt 158.8 kg
[2018-03-06 19:30] VITALS: BP 127/56
[2018-03-06] MEDS ORDERED: FUROSEMIDE 40 MG/4 ML VIAL IV ONE (20:45)
[2018-03-06] MEDS ORDERED: FUROSEMIDE 40 MG/4 ML VIAL IM ONE (21:00)
[2018-03-06] MEDS ORDERED: IBUPROFEN 800 MG TAB PO ONE (21:30)
== END 2018-03-06 21:26 | disposition home or self-care (01) ==
LOC: ER 19:00
DX: S80.812A Abrasion, left lower leg, initial encounter (principal); R60.9 Edema, unspecified; I50.9 Heart failure, unspecified; F17.210 Nicotine dependence, cigarettes, uncomplicated; F12.10 Cannabis abuse, uncomplicated; F15.10 Other stimulant abuse, uncomplicated; Z79.2 Long term (current) use of antibiotics; X58.XXXA Exposure to other specified factors, initial encounter; Y93.01 Activity, walking, marching and hiking; Y92.89 Other specified places as the place of occurrence of the external cause; Y99.8 Other external cause status
CPT/HCPCS: 96372; 99283; J1940

== ENCOUNTER 2018-03-16 23:36 | Emergency (ER) | payer MEDICAID ==
[~2018-03-16] VITALS: Ht 167.6 cm; Wt 147.6 kg
[2018-03-17] MEDS ORDERED: KETOROLAC TROMETH 60MG/2ML VIAL IM ONE (08:15)
[2018-03-17 09:16] VITALS: BP 110/60
== END 2018-03-17 09:54 | disposition home or self-care (01) ==
LOC: ER 23:36
DX: M54.5 Low back pain (principal); M79.18 Myalgia, other site; E66.9 Obesity, unspecified; Z68.43 Body mass index [BMI] 50.0-59.9, adult
CPT/HCPCS: 96372; 99283; J1885

== ENCOUNTER 2018-03-17 17:20 | Emergency (ER) | payer MEDICAID ==
[~2018-03-17] VITALS: Ht 162.6 cm; Wt 148.3 kg
[2018-03-17] MEDS ORDERED: HYDROcodone-ACET 10/325MG TAB PO ONE (19:00)
[2018-03-17 22:30] VITALS: BP 114/67
== END 2018-03-17 23:22 | disposition home or self-care (01) ==
LOC: ER 17:28
DX: M77.32 Calcaneal spur, left foot (principal); M77.31 Calcaneal spur, right foot; M51.37 Other intervertebral disc degeneration, lumbosacral region
CPT/HCPCS: 72100; 73630

== ENCOUNTER 2018-03-20 19:01 | Emergency (ER) | payer MEDICAID ==
[~2018-03-20] VITALS: Ht 165.1 cm; Wt 147.9 kg
[2018-03-20 20:11] LABS: Basophils # (auto) 0 uL; Basophils % (auto) 0.4 % (0.0-2.0); Eosinophils # (auto) 0.2 uL; Eosinophils % (auto) 2.5 % (0.0-7.0); Hematocrit 38.2 % (36.0-46.0); Hemoglobin 12.4 g/dL (12.2-16.2); Lymphocytes # (auto) 1.6 uL; Lymphocytes % (auto) 21.3 % (10.0-50.0); Mean Corpuscular Hemoglobin 28.6 pg (28.0-32.0); Mean Corpuscular Hgb Conc. 32.6 g/dL (32.0-36.0); Mean Corpuscular Volume 87.8 fL (80.0-100.0); Monocytes # (auto) 0.5 uL; Monocytes % (auto) 6.5 % (0.0-12.0); Neutrophils # (auto) 5.1 uL; Neutrophils % (auto) 69.3 % (37.0-80.0); Nucleated Red Blood Cells % 0.1 %; Platelet Count (auto) 311 10^3/uL (140-450); Red Blood Cells 4.35 10^6/uL (4.0-5.20); Red Cell Distribution Width 14.8 % (11.8-14.3); White Blood Cell 7.4 10^3/uL (4.4-10.8)
[2018-03-20 20:27] LABS: Albumin 3.4 g/dL (3.4-5.0); Anion Gap 10 (5-15); BUN/Creatinine Ratio 16.9; Blood Urea Nitrogen 14 mg/dL (7-18); Calcium 8.4 mg/dL (8.5-10.1); Carbon Dioxide 25 mmol/L (21-32); Chloride 103 mmol/L (98-107); GFR African American > 60 mL/min; GFR Non-African American > 60 mL/min; Glucose 103 mg/dL (74-106); Potassium 3.5 mmol/L (3.5-5.1); Sodium 138 mmol/L (136-145)
[2018-03-20 20:30] LABS: Alanine Aminotransferase 16 U/L (13-56); Alkaline Phosphatase 70 U/L (45-117); Aspartate Aminotransferase 13 U/L (15-37); Bilirubin, Total 0.4 mg/dL (0.2-1.0); Total Protein 7.7 g/dL (6.4-8.2)
[2018-03-21] MEDS ORDERED: cefTRIAXone W LIDOCAINE 1 GM IM IM ONE (01:00)
[2018-03-21] MEDS ORDERED: cefTRIAXone SOD 1,000 MG VL ONE (01:59)
[2018-03-21 03:07] VITALS: BP 102/51
== END 2018-03-21 04:07 | disposition home or self-care (01) ==
LOC: ER 19:05
DX: L03.116 Cellulitis of left lower limb (principal); L03.115 Cellulitis of right lower limb; F17.210 Nicotine dependence, cigarettes, uncomplicated; F41.9 Anxiety disorder, unspecified; I50.9 Heart failure, unspecified; E66.9 Obesity, unspecified; Z68.43 Body mass index [BMI] 50.0-59.9, adult; Z59.0 Homelessness
CPT/HCPCS: 36415; 80053; 84484; 85025; 96372; 99283; J0696

== ENCOUNTER 2018-03-21 22:08 | Emergency (ER) | payer MEDICAID ==
[~2018-03-21] VITALS: Ht 165.1 cm; Wt 148.8 kg
[2018-03-21] MEDS ORDERED: FUROSEMIDE 40 MG TAB PO ONE (23:15)
[2018-03-21] MEDS ORDERED: HYDROcodone-ACET 10/325MG TAB PO ONE (23:15)
[2018-03-21] MEDS ORDERED: POTASSIUM CHL 20 Meq TABLET PO ONE (23:15)
[2018-03-21 23:35] VITALS: BP 115/67
== END 2018-03-22 00:14 | disposition home or self-care (01) ==
LOC: ER 22:08
DX: R60.0 Localized edema (principal); E66.9 Obesity, unspecified; Z68.43 Body mass index [BMI] 50.0-59.9, adult; Z91.14 Patient's other noncompliance with medication regimen

== ENCOUNTER 2018-03-27 22:07 | Emergency (ER) | payer MEDICAID ==
[~2018-03-27] VITALS: Ht 165.1 cm; Wt 158.4 kg
[2018-03-27 22:16] VITALS: BP 121/73
== END 2018-03-28 03:26 | disposition left against medical advice (07) ==
LOC: ER 22:07
DX: M79.672 Pain in left foot (principal); M79.671 Pain in right foot; Z53.21 Procedure and treatment not carried out due to patient leaving prior to being seen by health care provider

== ENCOUNTER 2018-03-30 23:28 | Emergency (ER) | payer MEDICAID | END 2018-03-31 01:29 | disposition left against medical advice (07) | LOC: ER 23:28 | DX: M79.606 Pain in leg, unspecified (principal); Z53.21 Procedure and treatment not carried out due to patient leaving prior to being seen by health care provider ==

== ENCOUNTER 2018-04-07 21:20 | Emergency (ER) | payer SELFPAY ==
[~2018-04-07] VITALS: Ht 172.7 cm; Wt 170.1 kg
[2018-04-07 21:35] VITALS: BP 143/87
== END 2018-04-08 07:57 | disposition left against medical advice (07) ==
LOC: ER 21:20 → EDBD 21:20 → ER 04-08 07:57
DX: L03.116 Cellulitis of left lower limb (principal); L03.115 Cellulitis of right lower limb; F17.210 Nicotine dependence, cigarettes, uncomplicated; F41.9 Anxiety disorder, unspecified; I50.9 Heart failure, unspecified; Z86.2 Personal history of diseases of the blood and blood-forming organs and certain disorders involving the immune mechanism; Z59.0 Homelessness; Z79.899 Other long term (current) drug therapy

== ENCOUNTER 2018-04-16 23:14 | Emergency (ER) | payer MEDICAID ==
[~2018-04-16] VITALS: Ht 167.6 cm; Wt 158.8 kg
[~2018-04-16 23:14] MED LIST changes: +CEPH-37 PO; +FURO40TA4 PO; +POTA8TAB2 PO
[2018-04-17] MEDS ORDERED: SODIUM CHLORIDE 0.9% 1,000 ML IV ONE (07:03)
[2018-04-17 09:11] VITALS: BP 111/44
[2018-04-17 09:53] LABS: Albumin 3.3 g/dL (3.4-5.0); Magnesium 2.1 mg/dL (1.6-2.6); Potassium 4.9 mmol/L (3.5-5.1)
[2018-04-17 09:57] LABS: BUN/Creatinine Ratio 28.2; Bilirubin, Total 0.5 mg/dL (0.2-1.0); Total Protein 7.1 g/dL (6.4-8.2)
== END 2018-04-17 10:52 | disposition left against medical advice (07) ==
LOC: EDBD → ER 23:14
DX: I89.0 Lymphedema, not elsewhere classified (principal); I87.8 Other specified disorders of veins; L30.8 Other specified dermatitis; E66.01 Morbid (severe) obesity due to excess calories; I50.9 Heart failure, unspecified; F17.210 Nicotine dependence, cigarettes, uncomplicated; F41.9 Anxiety disorder, unspecified; Z59.0 Homelessness; Z68.43 Body mass index [BMI] 50.0-59.9, adult
CPT/HCPCS: 36415; 71046; 80053; 83735; 93005

== ENCOUNTER 2018-04-20 21:14 | Emergency (ER) | payer MEDICAID ==
[~2018-04-20] VITALS: Ht 167.6 cm; Wt 153.8 kg
[2018-04-20 22:28] VITALS: BP 138/78
[2018-04-21 02:19] LABS: Basophils # (auto) 0 uL; Basophils % (auto) 0.5 % (0.0-2.0); Eosinophils # (auto) 0.2 uL; Eosinophils % (auto) 3.6 % (0.0-7.0); Hematocrit 39.4 % (36.0-46.0); Hemoglobin 12.7 g/dL (12.2-16.2); Lymphocytes # (auto) 1.6 uL; Lymphocytes % (auto) 26.6 % (10.0-50.0); Mean Corpuscular Hemoglobin 28.4 pg (28.0-32.0); Mean Corpuscular Hgb Conc. 32.4 g/dL (32.0-36.0); Mean Corpuscular Volume 87.8 fL (80.0-100.0); Monocytes # (auto) 0.5 uL; Monocytes % (auto) 7.5 % (0.0-12.0); Neutrophils # (auto) 3.7 uL; Neutrophils % (auto) 61.8 % (37.0-80.0); Platelet Count (auto) 271 10^3/uL (140-450); Red Blood Cells 4.48 10^6/uL (4.0-5.20); Red Cell Distribution Width 14.6 % (11.8-14.3)
[2018-04-21 02:38] LABS: Albumin 3.4 g/dL (3.4-5.0); BUN/Creatinine Ratio 22.9; Calcium 8.1 mg/dL (8.5-10.1); Potassium 3.7 mmol/L (3.5-5.1)
[2018-04-21 02:41] LABS: Bilirubin, Total 0.3 mg/dL (0.2-1.0); Total Protein 7.6 g/dL (6.4-8.2)
== END 2018-04-21 08:32 | disposition left against medical advice (07) ==
LOC: EDBD → ER 21:19
CPT/HCPCS: 36415; 80053; 83880; 85025

== ENCOUNTER 2018-04-21 16:53 | Emergency (ER) | payer MEDICAID ==
[~2018-04-21] VITALS: Ht 167.6 cm; Wt 154.2 kg
[2018-04-21 18:34] VITALS: BP 116/64
== END 2018-04-22 00:50 | disposition home or self-care (01) ==
LOC: EDBD → ER 16:53
DX: R60.0 Localized edema (principal); I50.9 Heart failure, unspecified

== ENCOUNTER 2018-04-22 08:01 | Emergency (ER) | payer MEDICAID ==
[~2018-04-22] VITALS: Ht 160 cm; Wt 155.6 kg
[2018-04-22 08:15] VITALS: BP 142/62
== END 2018-04-22 08:52 | disposition home or self-care (01) ==
LOC: EDBD → ER 08:01
DX: M79.89 Other specified soft tissue disorders (principal); F17.210 Nicotine dependence, cigarettes, uncomplicated; I50.9 Heart failure, unspecified

== ENCOUNTER 2018-04-26 20:14 | Emergency (ER) | payer MEDICAID ==
[~2018-04-26] VITALS: Ht 162.6 cm; Wt 149.7 kg
[2018-04-27 03:15] VITALS: BP 113/63
== END 2018-04-27 03:19 | disposition home or self-care (01) ==
LOC: ER 20:17
DX: L03.116 Cellulitis of left lower limb (principal); L03.115 Cellulitis of right lower limb; E66.01 Morbid (severe) obesity due to excess calories; I50.9 Heart failure, unspecified; F41.9 Anxiety disorder, unspecified; F17.210 Nicotine dependence, cigarettes, uncomplicated; Z59.0 Homelessness; Z68.43 Body mass index [BMI] 50.0-59.9, adult; Z79.2 Long term (current) use of antibiotics; Z79.899 Other long term (current) drug therapy

== ENCOUNTER 2018-05-01 20:18 | Emergency (ER) | payer MEDICAID ==
[~2018-05-01] VITALS: Ht 167.6 cm; Wt 145.1 kg
[2018-05-02 05:55] VITALS: BP 122/70
== END 2018-05-02 06:14 | disposition home or self-care (01) ==
LOC: ER 20:21
DX: J32.9 Chronic sinusitis, unspecified (principal); F20.9 Schizophrenia, unspecified; E66.9 Obesity, unspecified; I50.9 Heart failure, unspecified; F17.210 Nicotine dependence, cigarettes, uncomplicated; Z59.0 Homelessness; Z79.899 Other long term (current) drug therapy; Z68.43 Body mass index [BMI] 50.0-59.9, adult
CPT/HCPCS: 71045

== ENCOUNTER 2018-05-08 21:03 | Emergency (ER) | payer MEDICAID ==
[~2018-05-08] VITALS: Ht 167.6 cm; Wt 172.4 kg
[2018-05-08 21:34] VITALS: BP 151/89
[2018-05-09] MEDS ORDERED: ACETAMINOPHEN 325 MG TAB PO ONE (00:15)
[2018-05-09] MEDS ORDERED: FUROSEMIDE 40 MG TAB PO ONE (00:15)
[2018-05-09] MEDS ORDERED: cefTRIAXone SOD 1,000 MG VL IM ONE (00:45)
== END 2018-05-09 01:52 | disposition home or self-care (01) ==
LOC: ER 21:06
DX: E66.01 Morbid (severe) obesity due to excess calories (principal); R45.86 Emotional lability; F17.210 Nicotine dependence, cigarettes, uncomplicated; I50.9 Heart failure, unspecified; M79.605 Pain in left leg; M79.604 Pain in right leg; Z68.44 Body mass index [BMI] 60.0-69.9, adult; Z91.14 Patient's other noncompliance with medication regimen
CPT/HCPCS: J0696

== ENCOUNTER 2018-05-23 18:55 | Emergency (ER) | payer MEDICAID ==
[~2018-05-23] VITALS: Ht 160 cm; Wt 145.1 kg
[2018-05-23 19:31] VITALS: BP 152/99
== END 2018-05-23 20:23 | disposition home or self-care (01) ==
LOC: ER 18:58
DX: S60.311A Abrasion of right thumb, initial encounter (principal); I50.9 Heart failure, unspecified; F17.210 Nicotine dependence, cigarettes, uncomplicated; Z79.899 Other long term (current) drug therapy; Z59.0 Homelessness; W45.8XXA Other foreign body or object entering through skin, initial encounter; Y93.89 Activity, other specified; Y99.8 Other external cause status; Y92.89 Other specified places as the place of occurrence of the external cause

== ENCOUNTER 2018-05-26 20:28 | Emergency (ER) | payer MEDICAID ==
[~2018-05-26] VITALS: Ht 162.6 cm; Wt 136.1 kg
[2018-05-26 23:54] LABS: Albumin 3.1 g/dL (3.4-5.0); Calcium 8.5 mg/dL (8.5-10.1)
[2018-05-26 23:57] LABS: BUN/Creatinine Ratio 22.6; Bilirubin, Total 0.3 mg/dL (0.2-1.0); Total Protein 7.2 g/dL (6.4-8.2)
[2018-05-27] MEDS ORDERED: FUROSEMIDE 40 MG TAB PO ONE (06:00)
[2018-05-27 08:19] VITALS: BP 128/78
== END 2018-05-27 08:22 | disposition home or self-care (01) ==
LOC: EDBD 20:28 → ER 20:34
DX: I50.9 Heart failure, unspecified (principal); M79.672 Pain in left foot; M79.671 Pain in right foot; F41.9 Anxiety disorder, unspecified; F17.210 Nicotine dependence, cigarettes, uncomplicated; Z86.2 Personal history of diseases of the blood and blood-forming organs and certain disorders involving the immune mechanism; Z79.2 Long term (current) use of antibiotics; Z79.899 Other long term (current) drug therapy
CPT/HCPCS: 80053

== ENCOUNTER 2018-05-30 22:14 | Emergency (ER) | payer MEDICAID ==
[~2018-05-30] VITALS: Ht 160 cm; Wt 145.1 kg
[2018-05-30 22:15] VITALS: BP 136/73
[2018-05-31 02:55] LABS: Basophils # (auto) 0 uL; Basophils % (auto) 0.4 % (0.0-2.0); Eosinophils # (auto) 0.2 uL; Eosinophils % (auto) 3.4 % (0.0-7.0); Hematocrit 36.8 % (36.0-46.0); Hemoglobin 11.9 g/dL (12.2-16.2); Lymphocytes # (auto) 1.6 uL; Lymphocytes % (auto) 29.4 % (10.0-50.0); Mean Corpuscular Hemoglobin 27.7 pg (28.0-32.0); Mean Corpuscular Hgb Conc. 32.4 g/dL (32.0-36.0); Mean Corpuscular Volume 85.5 fL (80.0-100.0); Monocytes # (auto) 0.5 uL; Monocytes % (auto) 8.6 % (0.0-12.0); Neutrophils # (auto) 3.2 uL; Neutrophils % (auto) 58.2 % (37.0-80.0); Nucleated Red Blood Cells % 0.1 %; Platelet Count (auto) 269 10^3/uL (140-450); Red Cell Distribution Width 14.7 % (11.8-14.3); White Blood Cell 5.5 10^3/uL (4.4-10.8)
[2018-05-31 03:10] LABS: Albumin 3.4 g/dL (3.4-5.0); BUN/Creatinine Ratio 21.4; Calcium 8.5 mg/dL (8.5-10.1); Potassium 3.8 mmol/L (3.5-5.1)
[2018-05-31 03:13] LABS: Bilirubin, Total 0.4 mg/dL (0.2-1.0); Total Protein 7.5 g/dL (6.4-8.2)
== END 2018-05-31 09:08 | disposition home or self-care (01) ==
LOC: EDBD 22:14 → ER 22:16
DX: L03.116 Cellulitis of left lower limb (principal); I50.9 Heart failure, unspecified; F17.210 Nicotine dependence, cigarettes, uncomplicated; Z79.899 Other long term (current) drug therapy
CPT/HCPCS: 36415; 80053; 83880; 85025

== ENCOUNTER 2018-06-07 23:18 | Emergency (ER) | payer MEDICAID ==
[~2018-06-07] VITALS: Ht 165.1 cm; Wt 158.8 kg
[2018-06-08 00:17] VITALS: BP 124/50
== END 2018-06-08 00:25 | disposition home or self-care (01) ==
LOC: ER 23:22
DX: M79.671 Pain in right foot (principal); I50.9 Heart failure, unspecified; F17.210 Nicotine dependence, cigarettes, uncomplicated; Z79.899 Other long term (current) drug therapy; Z59.0 Homelessness

== ENCOUNTER 2018-06-24 05:32 | Emergency (ER) | payer MEDICAID ==
[~2018-06-24] VITALS: Ht 162.6 cm; Wt 164.2 kg
[2018-06-24 08:18] VITALS: BP 104/57
== END 2018-06-24 08:40 | disposition home or self-care (01) ==
LOC: ER 05:32
DX: M79.605 Pain in left leg (principal); M79.604 Pain in right leg; F41.9 Anxiety disorder, unspecified; I50.9 Heart failure, unspecified; F17.210 Nicotine dependence, cigarettes, uncomplicated; Z59.0 Homelessness; Z79.899 Other long term (current) drug therapy

== ENCOUNTER 2018-06-29 22:38 | Inpatient (IN) | payer MEDICAID ==
[~2018-06-29] VITALS: Ht 162.6 cm; Wt 176.3 kg
[2018-06-30] MEDS ORDERED: SODIUM CHLORIDE 0.9% 1,000 ML IV ONE (07:20)
[2018-06-30] MEDS ORDERED: HYDROmorphone HCL 2 MG/ML VL IV ONE (07:30)
[2018-06-30] MEDS ORDERED: ONDANSETRON HCL 4 MG/2 ML VIAL IV ONE (07:30)
[2018-06-30] MEDS ORDERED: cefTRIAXone 1GM/50ML D5W 50 ML IV ONE (07:30)
[2018-06-30 08:04] LABS: Basophils # (auto) 0 uL; Basophils % (auto) 0.6 % (0.0-2.0); Eosinophils # (auto) 0.2 uL; Eosinophils % (auto) 3.6 % (0.0-7.0); Hematocrit 38.4 % (36.0-46.0); Hemoglobin 12.5 g/dL (12.2-16.2); Lymphocytes # (auto) 1.1 uL; Lymphocytes % (auto) 20.1 % (10.0-50.0); Mean Corpuscular Hemoglobin 27.7 pg (28.0-32.0); Mean Corpuscular Hgb Conc. 32.7 g/dL (32.0-36.0); Mean Corpuscular Volume 84.6 fL (80.0-100.0); Monocytes # (auto) 0.5 uL; Monocytes % (auto) 8.4 % (0.0-12.0); Neutrophils # (auto) 3.8 uL; Neutrophils % (auto) 67.3 % (37.0-80.0); Platelet Count (auto) 230 10^3/uL (140-450); Red Blood Cells 4.53 10^6/uL (4.0-5.20); White Blood Cell 5.7 10^3/uL (4.4-10.8)
[2018-06-30 08:13] LABS: Potassium 3.9 mmol/L (3.5-5.1)
[2018-06-30 08:16] LABS: Albumin 3.4 g/dL (3.4-5.0); Calcium 8.9 mg/dL (8.5-10.1); Magnesium 2.1 mg/dL (1.6-2.6)
[2018-06-30 08:19] LABS: BUN/Creatinine Ratio 20.5
[2018-06-30 08:22] LABS: Bilirubin, Total 0.3 mg/dL (0.2-1.0); Total Protein 7.9 g/dL (6.4-8.2)
--- NOTE | 2018-06-30 11:20 | NUR ---
WOUND CARE NOTE: Wound care in to see patient per wound care request regarding "Rt lower leg cellulitis". Bedside nurse took photograph of patient's skin integrity issue upon admission for reference. Patient is 43 years old female with admitting diagnosis of Lower extremity cellulitis. Patient is resting in ER bed #15. She's awake, alert and oriented. Patient is self turn and reposition. Her current Thomas score is 19. Noted patient's BLE has edema and erythema. Her Rt lower leg has multi closed and open serum filled blisters; the largest measuring is 6x8cm open to partial thickness wound. Minimal serous drainage or odor noted. ER nurse took specimen for wound culture and sent to lab for processing. Cleansed patient's RLE wounds with wound cleanser, patted dry with sterile gauze, applied Thera honey gauze to o pen wound,covered with absorbent pad and secured with stockinette. Patient tolerated well. RECOMMENDATION: EOD/PRN dressing change to RLE wounds per MD order, redistribute pressure points with pillows, elevate edematous extremities on pillows to help reduce edema,continue monitoring by wound care while patient is hospitalized. Addendum: 06/30/18 at 1734 by Sunitha Ace RN Amended: Links added.
[2018-06-30] MEDS ORDERED: FUROSEMIDE 40 MG/4 ML VIAL IV ONE (11:45)
[2018-06-30] MEDS ORDERED: ACETAMINOPHEN 500 MG TAB PO PRN (12:15)
[2018-06-30] MEDS ORDERED: traMADol HCL 50 MG TAB PO PRN (12:15)
[2018-06-30] MEDS ORDERED: MORPHINE SULF INJ 2 MG/ML SYRINGE 1ML IV PRN (12:15)
[2018-06-30] MEDS ORDERED: PROMETHAZINE HCL 25 MG/ML 1ML IV PRN (12:15)
[2018-06-30] MEDS ORDERED: LACTULOSE 20Gm/30ML SOLN PO PRN (12:15)
[2018-06-30] MEDS ORDERED: TEMAZEPAM 15 MG CAP PO PRN (12:15)
[2018-06-30] MEDS ORDERED: NITROGLYCERIN 0.4 MG SL TAB SL PRN (12:15)
[2018-06-30] MEDS ORDERED: VANCOMYCIN PER PHARMACY 0 MG IV SCH (12:30)
--- NOTE | 2018-06-30 14:30 | NUR ---
Telemetry admit from ER ALICIAKWAME admitted to Telemetry unit after SBAR received. Patient oriented to SANGITA TIPTON, RN primary RN, unit, room, bed, and unit policies regarding patient care and visiting hours. Patient now on continuous telemetry monitoring, tele box # 11. Patient weighed by bedscale and encouraged to call if they need something. All questions and concerns addressed, patient verbalized understanding.
[2018-06-30] MEDS: VANCOMYCIN 1,500 MG in D5W 5% 250 ML IV SCH ×2 (15:14→21:54)
[2018-06-30] MEDS: SODIUM CHLOR 0.9% PF (SALINE LOCK) 10ML VIAL/SYR IV SCH ×2 (15:15→21:54)
[2018-06-30 15:20] VITALS: BP 113/46
[2018-06-30 16:22] VITALS: BP 111/52
[2018-06-30] MEDS: FUROSEMIDE 40 MG/4 ML VIAL IV SCH (18:48)
--- NOTE | 2018-06-30 19:30 | NUR ---
Opening Shift Note Assumed care of patient, awake and alert oriented x4. Large bedside commode provided to the patient and is at bedside, bed alarm armed. Moved patient from 240B to 240A due to patient requesting a different bed. No S/S of distress/SOB or pain noted. Right leg is wrapped with dressing. Bed is in lowest locked position with bed rails up x2 and call light is within reach of the patient. Instructed on POC and to call for assist PRN.
[2018-06-30 22:00] VITALS: BP 117/56
[2018-07-01] VITALS (8 sets, daily range): BP systolic 99–116; BP diastolic 43–59
[2018-07-01] MEDS: SODIUM CHLOR 0.9% PF (SALINE LOCK) 10ML VIAL/SYR IV SCH ×3 (06:43→21:34)
[2018-07-01] MEDS: FUROSEMIDE 40 MG/4 ML VIAL IV SCH ×2 (06:43→18:23)
--- NOTE | 2018-07-01 07:40 | NUR ---
OPENING SHIFT NOTE PATIENT LOCKED HERSELF IN BATHROOM AND WAS HYSTERICALLY CRYING AND TALKING TO HERSELF. ASKED PATIENT TO UNLOCK DOOR SEVERAL TIMES. PATIENT STATED "I CAN'T, IM UNDERNEATH THE SHOWER." PRIMARY RN UNLOCKED DOOR. PATIENT WAS UNHARMED AND SITTING ON BATHROOM SHOWER STOOL. PATIENT IS AWAKE AND ALERTx4, NO SIGNS OR SYMPTOMS OF PAIN OR SOB. PATIENT IS UPSET DUE TO INCONTINENCE AND DECIDED TO GE IN SHOWER. ASSISTED PATIENT WITH PERSONAL HYGIENE. PATIENT BACK IN BED WITH CLEAN GOWN AND COMPLETE LINEN CHANGE. INSTRUCTED PATIENT ON POC AND VERBALIZED UNDERSTANDING. TRANSFERRED PATIENT TO [facility] WITH ALL PERSONAL BELONGING. NO SIGNS OF DISTRESS NOTED. BED AT LOWEST POSITION, CALL WITHIN REACH, PATIENT INSTRUCTED TO CALL IF NEEDED.
--- NOTE | 2018-07-01 07:48 | NUR ---
Patient hysterically crying: Patient had accidently wet the bed and was discovered by DATABASE REPORTING CONSULTANT hysterically crying. Was transported to [facility] to use the restroom and DATABASE REPORTING CONSULTANT went to retrieve new bedding sheets and was discovered in the shower crying and yelling "You let this happen! I wet all over myself and my bed I hate you!" To page hospitalist to get something for anxiety for the patient. DATABASE REPORTING CONSULTANT and day shift nurse with patient by shower.
--- NOTE | 2018-07-01 07:58 | NUR ---
Called hospitalist, new orders received: [facility] updated on patient. Ordered Ativan 0.5mg PO every 12 hours. Care endorsed to day shift nurse. Addendum: 07/01/18 at 0810 by Sandy Kingsley RN RN Placed orders and care endorsed to day shift nurse.
[2018-07-01] MEDS ORDERED: LORazepam 0.5 MG TAB PO PRN (08:00)
[2018-07-01] MEDS: cefTRIAXone 1GM/50ML D5W 50 ML IV SCH (09:27)
--- NOTE | 2018-07-01 09:50 | NUR ---
RECEIVED CALL FROM MD DARLING UPDATED MD ON PATIENT'S STATUS, MD IS AWARE. MD ORDERED CARDIO CONSULT. WILL FOLLOW THROUGH WITH ORDERS
[2018-07-01] MEDS ORDERED: ENOXAPARIN SOD 40 MG/0.4 ML SYRINGE SC SCH (10:00)
[2018-07-01] MEDS ORDERED: POTASSIUM CHL 20 Meq TABLET PO SCH (10:00)
[2018-07-01] MEDS ORDERED: SPIRONOLACTONE 25 MG TAB PO SCH (10:00)
[2018-07-01] MEDS ORDERED: ENALAPRIL MALEATE 2.5 MG TAB PO SCH (10:00)
[2018-07-01] MEDS ORDERED: PANTOPRAZOLE 40 MG TAB PO SCH (10:00)
[2018-07-01] MEDS: VANCOMYCIN 1,500 MG in D5W 5% 250 ML IV SCH (10:46)
--- NOTE | 2018-07-01 12:31 | NUR ---
Nutrition consult/assessment Notes please see attached link for complete assessment Est. Needs IBW [id number] kcal (25-30 kcal/kgBW), 54-65 gms pro (1.0-1.2 gms/kgBWd /t wound healing). Will continue to monitor pertinent labs and reassess nutrient need prn Addendum: 07/01/18 at [address] Amended: Links added.
--- NOTE | 2018-07-01 12:40 | NUR ---
MD ONTIVEROS AT BEDSIDE. UPDATED MD ON PATIENT'S STATUS, MD IS AWARE.
--- NOTE | 2018-07-01 13:15 | NUR ---
MD DARLING AT BEDSIDE UPDATED MD ON PATIENT'S STATUS, INFORMED MD THAT ORCHID WORKER RAMA ORDERED ECHO, MD IS AWARE AND WANTS CARDIO CLEARANCE SO PATIENT CAN BE DISCHARGED. WILL PAGE MD ONTIVEROS AND SOCIAL SERVICE.
[2018-07-01] MEDS ORDERED: VANCOMYCIN 1,500 MG in D5W 5% 250 ML IV SCH (13:30)
--- NOTE | 2018-07-01 13:35 | NUR ---
SPOKE WITH MD ONTIVEROS. INFORMED MD PATIENT'S LAST ECHO WAS IN MARCH 2017. INFORMED MD OF RESULTS. PER MD NEW ECHO ORDER CAN BE CANCELLED AND PATIENT IS CLEARED FOR DISCHARGE. WILL FOLLOW THROUGH WITH ORDERS.
--- NOTE | 2018-07-01 13:40 | NUR ---
INFORMED UNION LABORER LISA OF SOCIAL SERVICE CONSULT, SHE IS AWARE AND WILL SPEAK WITH PATIENT.
[2018-07-01] MEDS ORDERED: VANCOMYCIN 1,500 MG in D5W 5% 250 ML IV ONE (13:45)
[2018-07-01] MEDS ORDERED: CLIN1CAP4 PO (14:24)
[2018-07-01] MEDS ORDERED: FURO40TA PO (14:24)
--- NOTE | 2018-07-01 19:30 | NUR ---
CLOSING SHIFT NOTE ENDORSED CARE TO ROOFER RN SUSIE. PATIENT HAS NO S/S OF DISTRESS/SOB OR PAIN AT THIS TIME.
--- NOTE | 2018-07-01 19:55 | NUR ---
RECEIVED PATIENT FROM DAY SHIFT RN. PATIENT TAKING SHOWER WHEN CHECKING HER. PATIENT STATED SHE URINATED ON HER AND NEEDED TO CLEAN HERSELF. ASSISTED PATIENT BACK TO BED. DRESSING ON RIGHT LOWER LEG CHANGED SINCE IT WAS WET FROM SHOWER. INSTRUCTED PATIENT TO CALL FOR HELP IF NEEDED. PATIENT DENIED PAIN FOR NOW. NON-SKID SOCKS APPLIED POC INSTRUCTED. BED IN LOWEST POSITION WITH SIDE RAILS UP X 2. CALL HENDERSON WITHIN REACH. ALARM ON. CONTINUE TO MONITOR FOR CHANGES Q1H AND PRN.
--- NOTE | 2018-07-01 20:52 | NUR ---
PATIENT URINATED AGAIN ON THE FLOOR, AND WET HER DRESSING. TOTAL BED LINEN AND GOWN CHANGED. DRESSING CHANGED AT THIS TIME. PATIENT TOLERATED WELL. CONTINUE TO MONITOR.
--- NOTE | 2018-07-01 23:52 | NUR ---
ASSISTED PATIENT TO BEDSIDE COMMODE. PATIENT TOLERATED WELL. URINE SAMPLE COLLECTED AND SENT. CONTINUE TO MONITOR.
[2018-07-01 23:53] LABS: Urine WBC None Seen /hpf (0 - 5)
[2018-07-02 00:04] LABS: Urine Bacteria NONE SEEN /hpf (None Seen); Urine Blood Negative /uL (Negative); Urine Specific Gravity 1.005 (1.001-1.035)
[2018-07-02 00:15] LABS: Alcohol, Urine < 3.0 mg/dL (0-5); Amphetamine Screen, Urine NEGATIVE (NEGATIVE); Barbiturate Scree,Urine NEGATIVE (NEGATIVE); Benzodiazephine Screen, Urine NEGATIVE (NEGATIVE); Cannabinoid Screen, Urine NEGATIVE (NEGATIVE); Cocaine Screen, Urine NEGATIVE (NEGATIVE); Opiate Scree,Urine NEGATIVE (NEGATIVE); Phencyclidine Screen, Urine NEGATIVE (NEGATIVE)
[2018-07-02] MEDS ORDERED: VANCOMYCIN 1,500 MG in D5W 5% 250 ML IV SCH (02:00)
--- NOTE | 2018-07-02 02:09 | NUR ---
PATIENT SLEEPING. NO S/S OF DISTRESS NOTED. CONTINUE CARE.
[2018-07-02 05:10] VITALS: BP 132/66
[2018-07-02] MEDS: FUROSEMIDE 40 MG/4 ML VIAL IV SCH (06:00)
[2018-07-02] MEDS: SODIUM CHLOR 0.9% PF (SALINE LOCK) 10ML VIAL/SYR IV SCH (06:17)
--- NOTE | 2018-07-02 06:17 | NUR ---
PATIENT REFUSED TO TAKE LASIX NOW. SHE STATED SHE SHOULD GO TODAY BEFORE 0900AM. SHE DID NOT WANT TO URINATE OUTSIDE. INSTRUCTED PATIENT THE IMPORTANCE OF LASIX AND SHE MIGHT NEED IT FOR NOW. PATIENT INSISTED TO REFUSE THE MEDICATION.
--- NOTE | 2018-07-02 07:10 | NUR ---
OPENING SHIFT NOTE ASSUMED CARE OF PATIENT FROM BATCH UNLOADER RN SUSIE, PER RN, PATIENT WANTS TO LEAVE AT 0900 WITHOUT SENIOR LIVING OR WOUND CARE CONSULT, SO SHE MAY GO TO WORK. PATIENT IS AWAKE AND ALERT X4. PATIENT HAS NO S/S OF DISTRESS/SOB OR PAIN. INSTRUCTED PATIENT ON POC, PATIENT VERBALIZED UNDERSTANDING. PATIENT IS REFUSING SOCIAL SERVICE CONSULT FOR SENIOR LIVING AND WOUND CARE CONSULT, EDUCATED PATIENT ON BENEFITS OF CONSULTS, PATIENT VERBALIZED UNDERSTANDING AND STILL REFUSED CONSULTS. PATIENT STATED " I NEED TO GO TO WORK, I NEED TO LEAVE BY 0900. I DONT NEED A SENIOR LIVING, IM JUST GOING TO BOUNCE EVERYWHERE LIKE I NORMALLY DO." PAGED MD DARLING. BED IS IN LOWEST POSITION WITH SIDE RAILS RAISED X2, BED WHEELS LOCKED AND CALL LIGHT IS WITHIN REACH. WILL CONTINUE TO MONITOR.
[2018-07-02 08:00] VITALS: BP 108/47
--- NOTE | 2018-07-02 08:00 | NUR ---
SPOKE WITH MD DARLING. INFORMED PATIENT IS REFUSING SOCIAL SERVICE AND WOUND CONSULT, MD IS AWARE AND WANTS TO CONTINUE TO WITH DISCHARGE.
[2018-07-02 08:27] VITALS: BP 108/47
[2018-07-02] MEDS: cefTRIAXone 1GM/50ML D5W 50 ML IV SCH (09:00)
--- NOTE | 2018-07-02 09:23 | NUR ---
Called Pricilla Prasad CM for [facility] to see about putting this pt on their Complex Case Management , had to leave message.
--- NOTE | 2018-07-02 10:00 | NUR ---
Discharge instructions given as ordered. Encourage to follow up with PMD as instructed. All questions and concerns addressed. Patient verbalized understanding. Medication reconciliation form completed and copy given to patient. IV removed with catheter intact, pressure dressing applied. Telemetry unit returned to ICU. Patient taken to taxi via wheelchair with all personal belongings, accompanied by staff. Informed patient to cigar packer and picker medications from [facility] pharmacy, patient verbalized understanding. No distress noted at time of departure.
== END 2018-07-02 10:00 | disposition home or self-care (01) | DRG 383 ==
LOC: ER 22:47 → TELE 06-30 12:13 → TELE-EAST 06-30 14:30
PROVIDERS: ADMIT Internal Medicine; ATTEND Internal Medicine
DX: L03.115 Cellulitis of right lower limb (principal); I50.33 Acute on chronic diastolic (congestive) heart failure; E66.01 Morbid (severe) obesity due to excess calories; I87.2 Venous insufficiency (chronic) (peripheral); Z68.44 Body mass index [BMI] 60.0-69.9, adult; F17.210 Nicotine dependence, cigarettes, uncomplicated; F41.9 Anxiety disorder, unspecified; I89.0 Lymphedema, not elsewhere classified; I87.8 Other specified disorders of veins; S80.829A Blister (nonthermal), unspecified lower leg, initial encounter; X58.XXXA Exposure to other specified factors, initial encounter; Z82.49 Family history of ischemic heart disease and other diseases of the circulatory system; Y93.89 Activity, other specified; Y92.89 Other specified places as the place of occurrence of the external cause; Z59.0 Homelessness; Y99.8 Other external cause status
CPT/HCPCS: 36415; 71045; 80053; 80307; 81001; 83735; 83880; 84484; 84702; 85025; 85379; 85652; 87040; 87077; 87186; 87205; 93306; 93970; 96361; 96374; 96375; G0378; J0696; J2405; J7060

== ENCOUNTER 2018-07-24 19:09 | Emergency (ER) | payer MEDICAID ==
[~2018-07-24] VITALS: Ht 165.1 cm; Wt 160.0 kg
[~2018-07-24 19:09] MED LIST changes: -CEPH-37 PO; -FURO40TA4 PO; -POTA8TAB2 PO; -SACC250C PO
[2018-07-25 02:51] LABS: Basophils # (auto) 0 uL; Eosinophils # (auto) 0.2 uL; Hemoglobin 11.6 g/dL (12.2-16.2); Monocytes # (auto) 0.5 uL; Nucleated Red Blood Cells % 0.1 %
[2018-07-25 02:53] LABS: Basophils % (auto) 0.4 % (0.0-2.0); Eosinophils % (auto) 2.7 % (0.0-7.0); Hematocrit 36.4 % (36.0-46.0); Lymphocytes # (auto) 1.3 uL; Lymphocytes % (auto) 18.2 % (10.0-50.0); Mean Corpuscular Hemoglobin 26.8 pg (28.0-32.0); Mean Corpuscular Volume 83.9 fL (80.0-100.0); Monocytes % (auto) 7.1 % (0.0-12.0); Neutrophils % (auto) 71.6 % (37.0-80.0); Platelet Count (auto) 320 10^3/uL (140-450); Red Blood Cells 4.33 10^6/uL (4.0-5.20); Red Cell Distribution Width 15.1 % (11.8-14.3)
[2018-07-25 03:04] LABS: Albumin 3.4 g/dL (3.4-5.0); Potassium 4.1 mmol/L (3.5-5.1)
[2018-07-25 03:07] LABS: BUN/Creatinine Ratio 27.8
[2018-07-25 03:09] LABS: Bilirubin, Total 0.3 mg/dL (0.2-1.0); Total Protein 7.8 g/dL (6.4-8.2)
[2018-07-25 08:21] VITALS: BP 117/58
== END 2018-07-25 08:50 | disposition home or self-care (01) ==
LOC: ER 19:14
DX: L03.115 Cellulitis of right lower limb (principal); I50.9 Heart failure, unspecified; F17.210 Nicotine dependence, cigarettes, uncomplicated; Z59.0 Homelessness
CPT/HCPCS: 36415; 80053; 83880; 85025; 85379

== ENCOUNTER 2018-07-25 20:31 | Emergency (ER) | payer MEDICAID ==
[~2018-07-25] VITALS: Ht 162.6 cm; Wt 140.6 kg
[2018-07-26 10:04] VITALS: BP 100/49
== END 2018-07-26 10:28 | disposition home or self-care (01) ==
LOC: ER 20:34
DX: M79.605 Pain in left leg (principal); M79.604 Pain in right leg; I50.9 Heart failure, unspecified; F17.210 Nicotine dependence, cigarettes, uncomplicated

== ENCOUNTER 2018-07-26 18:53 | Emergency (ER) | payer MEDICAID ==
[~2018-07-26] VITALS: Ht 157.5 cm; Wt 154.2 kg
[2018-07-27 01:40] VITALS: BP 111/62
[2018-07-27 02:37] LABS: Basophils # (auto) 0.1 uL; Basophils % (auto) 1.1 % (0.0-2.0); Eosinophils # (auto) 0.2 uL; Eosinophils % (auto) 3.8 % (0.0-7.0); Hematocrit 32.8 % (36.0-46.0); Hemoglobin 10.7 g/dL (12.2-16.2); Lymphocytes # (auto) 0.9 uL; Lymphocytes % (auto) 18.1 % (10.0-50.0); Mean Corpuscular Hemoglobin 27.3 pg (28.0-32.0); Mean Corpuscular Hgb Conc. 32.7 g/dL (32.0-36.0); Mean Corpuscular Volume 83.4 fL (80.0-100.0); Monocytes # (auto) 0.4 uL; Monocytes % (auto) 8.1 % (0.0-12.0); Neutrophils # (auto) 3.6 uL; Neutrophils % (auto) 68.9 % (37.0-80.0); Platelet Count (auto) 260 10^3/uL (140-450); Red Blood Cells 3.93 10^6/uL (4.0-5.20); Red Cell Distribution Width 15.1 % (11.8-14.3); White Blood Cell 5.2 10^3/uL (4.4-10.8)
[2018-07-27 02:59] LABS: Alkaline Phosphatase 61 U/L (45-117); Bilirubin, Total 0.4 mg/dL (0.2-1.0); Total Protein 6.7 g/dL (6.4-8.2)
[2018-07-27 03:05] LABS: Chloride 107 mmol/L (98-107); Sodium 140 mmol/L (136-145)
[2018-07-27 03:06] LABS: Alanine Aminotransferase 13 U/L (13-56); Albumin 2.8 g/dL (3.4-5.0); Anion Gap 5 (5-15); Aspartate Aminotransferase 9 U/L (15-37); BUN/Creatinine Ratio 20.3; Blood Urea Nitrogen 15 mg/dL (7-18); Calcium 8.2 mg/dL (8.5-10.1); Carbon Dioxide 28 mmol/L (21-32); GFR African American 109 mL/min; GFR Non-African American 90 mL/min; Glucose 106 mg/dL (74-106)
== END 2018-07-27 03:12 | disposition home or self-care (01) ==
LOC: EDBD 18:53 → ER 18:56
DX: I50.9 Heart failure, unspecified (principal); L03.116 Cellulitis of left lower limb; L03.115 Cellulitis of right lower limb; F17.210 Nicotine dependence, cigarettes, uncomplicated
CPT/HCPCS: 36415; 80053; 83605; 85025

== ENCOUNTER 2018-07-29 16:32 | Inpatient (IN) | payer MEDICAID | END 2018-08-02 19:06 | disposition home or self-care (01) | LOC: WEST WING 20:20 → ER 16:32 → OVERFLOW 19:23 → WEST WING 20:22 | DX: L03.115 Cellulitis of right lower limb (principal); I11.0 Hypertensive heart disease with heart failure; E44.1 Mild protein-calorie malnutrition; I50.32 Chronic diastolic (congestive) heart failure; L03.116 Cellulitis of left lower limb; E66.01 Morbid (severe) obesity due to excess calories; D64.9 Anemia, unspecified; Z59.0 Homelessness; Z79.899 Other long term (current) drug therapy; Z82.49 Family history of ischemic heart disease and other diseases of the circulatory system; I89.0 Lymphedema, not elsewhere classified ==

== ENCOUNTER 2018-08-02 18:46 | Emergency (ER) | payer MEDICAID ==
[~2018-08-02] VITALS: Ht 165.1 cm; Wt 155.1 kg
[~2018-08-02 18:46] MED LIST changes: -CLIN1CAP4 PO; +FURO1TAB31 PO; -FURO40TA PO
[2018-08-02 19:19] VITALS: BP 127/69
[2018-08-03] MEDS ORDERED: cefTRIAXone SOD 1,000 MG VL IM ONE (02:45)
[2018-08-03] MEDS ORDERED: SULFAMETHOX W/TRIMETH(800/160MG) DS TAB PO ONE (02:45)
[2018-09-12] MEDS ORDERED: TRAM-711 PO (16:38)
[2018-11-09] MEDS ORDERED: CLIN300C8 PO (11:26)
[2018-11-09] MEDS ORDERED: POTA10TA51 PO (11:26)
[2018-11-09] MEDS ORDERED: CEPH500C PO (11:26)
[2018-11-09] MEDS ORDERED: DOXY100C2 PO (11:26)
[2018-11-09] MEDS ORDERED: FURO40TA4 PO (11:26)
[2018-11-09] MEDS ORDERED: CIPR-217 PO (11:26)
== END 2018-08-03 04:04 | disposition home or self-care (01) ==
LOC: ER 18:47
DX: R05 Cough (principal); F17.210 Nicotine dependence, cigarettes, uncomplicated; Z59.0 Homelessness
CPT/HCPCS: 71046; 96372; 99283; J0696

== ENCOUNTER 2018-08-03 21:27 | Emergency (ER) | payer MEDICAID ==
[~2018-08-03] VITALS: Ht 165.1 cm; Wt 145.6 kg
[~2018-08-03 21:27] MED LIST changes: -FURO1TAB31 PO; +FURO40TA PO
[2018-08-03 22:00] VITALS: BP 135/88
[2018-08-03 23:48] LABS: Basophils # (auto) 0 uL; Basophils % (auto) 0.3 % (0.0-2.0); Eosinophils # (auto) 0.3 uL; Eosinophils % (auto) 3.9 % (0.0-7.0); Hematocrit 35.8 % (36.0-46.0); Hemoglobin 11.6 g/dL (12.2-16.2); Lymphocytes # (auto) 1.1 uL; Lymphocytes % (auto) 14.6 % (10.0-50.0); Mean Corpuscular Hemoglobin 27.1 pg (28.0-32.0); Mean Corpuscular Hgb Conc. 32.4 g/dL (32.0-36.0); Mean Corpuscular Volume 83.4 fL (80.0-100.0); Monocytes # (auto) 0.6 uL; Monocytes % (auto) 8.2 % (0.0-12.0); Neutrophils # (auto) 5.4 uL; Nucleated Red Blood Cells % 0.1 %; Platelet Count (auto) 197 10^3/uL (140-450); Red Blood Cells 4.29 10^6/uL (4.0-5.20); Red Cell Distribution Width 15.3 % (11.8-14.3); White Blood Cell 7.5 10^3/uL (4.4-10.8)
[2018-08-04 00:06] LABS: Albumin 3.4 g/dL (3.4-5.0); Calcium 8.5 mg/dL (8.5-10.1); Potassium 3.5 mmol/L (3.5-5.1)
[2018-08-04 00:08] LABS: BUN/Creatinine Ratio 19.5
[2018-08-04 00:12] LABS: Bilirubin, Total 0.5 mg/dL (0.2-1.0)
== END 2018-08-04 07:58 | disposition home or self-care (01) ==
LOC: EDBD 21:27 → ER 21:28
DX: J06.9 Acute upper respiratory infection, unspecified (principal); E66.01 Morbid (severe) obesity due to excess calories; I87.8 Other specified disorders of veins; L30.9 Dermatitis, unspecified; F41.9 Anxiety disorder, unspecified; I50.9 Heart failure, unspecified; F17.210 Nicotine dependence, cigarettes, uncomplicated; Z68.43 Body mass index [BMI] 50.0-59.9, adult; Z59.0 Homelessness
CPT/HCPCS: 36415; 71046; 80053; 83880; 85025

== ENCOUNTER 2018-08-04 20:28 | Emergency (ER) | payer MEDICAID ==
[~2018-08-04] VITALS: Ht 165.1 cm; Wt 149.7 kg
[2018-08-05] MEDS ORDERED: FUROSEMIDE 40 MG TAB PO ONE (08:45)
[2018-08-05] MEDS ORDERED: KETOROLAC TROMETH 60MG/2ML VIAL IM ONE (08:45)
[2018-08-05 09:20] VITALS: BP 118/51
== END 2018-08-05 09:41 | disposition home or self-care (01) ==
LOC: EDBD 20:28 → ER 20:33
DX: L03.116 Cellulitis of left lower limb (principal); F17.210 Nicotine dependence, cigarettes, uncomplicated
CPT/HCPCS: 96372; 99283; J1885

== ENCOUNTER 2018-08-21 23:08 | Emergency (ER) | payer MEDICAID ==
[~2018-08-21] VITALS: Ht 160 cm; Wt 149.7 kg
[2018-08-22 00:35] LABS: Eosinophils # (auto) 0.3 uL; Monocytes # (auto) 0.6 uL; White Blood Cell 8.7 10^3/uL (4.4-10.8)
[2018-08-22 00:36] LABS: Basophils # (auto) 0 uL; Basophils % (auto) 0.5 % (0.0-2.0); Eosinophils % (auto) 3.7 % (0.0-7.0); Hematocrit 37.8 % (36.0-46.0); Hemoglobin 12.2 g/dL (12.2-16.2); Lymphocytes # (auto) 1.5 uL; Lymphocytes % (auto) 17.2 % (10.0-50.0); Mean Corpuscular Hemoglobin 26.7 pg (28.0-32.0); Mean Corpuscular Hgb Conc. 32.3 g/dL (32.0-36.0); Mean Corpuscular Volume 82.6 fL (80.0-100.0); Monocytes % (auto) 7.2 % (0.0-12.0); Neutrophils # (auto) 6.2 uL; Neutrophils % (auto) 71.4 % (37.0-80.0); Platelet Count (auto) 288 10^3/uL (140-450); Red Blood Cells 4.57 10^6/uL (4.0-5.20); Red Cell Distribution Width 15.6 % (11.8-14.3)
[2018-08-22 00:48] LABS: INR 0.93 (0.9-1.15); Partial Thromboplastin Time 28.7 sec (23.64-32.05)
[2018-08-22 00:51] LABS: Albumin 3.4 g/dL (3.4-5.0); BUN/Creatinine Ratio 20.6; Calcium 8.5 mg/dL (8.5-10.1); Potassium 4.4 mmol/L (3.5-5.1)
[2018-08-22 00:53] LABS: Bilirubin, Total 0.3 mg/dL (0.2-1.0); Total Protein 8.1 g/dL (6.4-8.2)
[2018-08-22 09:27] VITALS: BP 124/58
== END 2018-08-22 11:07 | disposition home or self-care (01) ==
LOC: EDBD 23:08 → ER 23:14
DX: M79.605 Pain in left leg (principal); M79.604 Pain in right leg; F17.210 Nicotine dependence, cigarettes, uncomplicated; E66.9 Obesity, unspecified; Z68.43 Body mass index [BMI] 50.0-59.9, adult; Z59.0 Homelessness; Z79.899 Other long term (current) drug therapy
CPT/HCPCS: 36415; 80053; 85025; 85610; 85730; 93970; 94761

== ENCOUNTER 2018-08-25 16:26 | Emergency (ER) | payer MEDICAID ==
[~2018-08-25] VITALS: Ht 167.6 cm; Wt 136.1 kg
[2018-08-25 16:32] VITALS: BP 145/75
== END 2018-08-25 20:39 | disposition home or self-care (01) ==
LOC: EDBD 16:26 → ER 16:27
DX: M79.605 Pain in left leg (principal); M79.604 Pain in right leg; Z79.899 Other long term (current) drug therapy

== ENCOUNTER 2018-08-26 20:05 | Emergency (ER) | payer MEDICAID ==
[~2018-08-26] VITALS: Ht 165.1 cm; Wt 161.5 kg
[2018-08-27 02:16] VITALS: BP 126/59
== END 2018-08-27 03:39 | disposition home or self-care (01) ==
LOC: ER 20:06
DX: B35.4 Tinea corporis (principal); R60.9 Edema, unspecified; F17.210 Nicotine dependence, cigarettes, uncomplicated; Z79.899 Other long term (current) drug therapy

== ENCOUNTER 2018-09-08 20:52 | Emergency (ER) | payer MEDICAID ==
[~2018-09-08] VITALS: Ht 165.1 cm; Wt 186.0 kg
[2018-09-09 04:30] VITALS: BP 109/53
== END 2018-09-09 05:15 | disposition home or self-care (01) ==
LOC: EDBD 20:52 → ER 20:56
DX: L03.116 Cellulitis of left lower limb (principal); L03.115 Cellulitis of right lower limb; F17.210 Nicotine dependence, cigarettes, uncomplicated; I50.9 Heart failure, unspecified; Z59.0 Homelessness
CPT/HCPCS: 81002

== ENCOUNTER 2018-09-26 16:02 | Emergency (ER) | payer MEDICAID ==
[~2018-09-26] VITALS: Ht 167.6 cm; Wt 149.7 kg
[~2018-09-26 16:02] MED LIST changes: +FURO1TAB31 PO; -FURO40TA PO; +TRAM-711 PO
[2018-09-26] MEDS ORDERED: KETOROLAC TROMETH 60MG/2ML VIAL IM ONE (16:45)
[2018-09-26] MEDS ORDERED: HYDROcodone-ACET 5/325MG TAB PO ONE (16:45)
[2018-09-26 18:40] VITALS: BP 123/76
== END 2018-09-26 18:44 | disposition home or self-care (01) ==
LOC: EDBD 16:02 → ER 16:07
DX: S86.812A Strain of other muscle(s) and tendon(s) at lower leg level, left leg, initial encounter (principal); S86.811A Strain of other muscle(s) and tendon(s) at lower leg level, right leg, initial encounter; M54.5 Low back pain; I50.9 Heart failure, unspecified; Z79.899 Other long term (current) drug therapy; X58.XXXA Exposure to other specified factors, initial encounter; Y93.89 Activity, other specified; Y99.8 Other external cause status; Y92.89 Other specified places as the place of occurrence of the external cause
CPT/HCPCS: 96372; 99283; J1885

== ENCOUNTER 2018-09-27 11:26 | Emergency (ER) | payer MEDICAID ==
[~2018-09-27] VITALS: Ht 165.1 cm; Wt 151.5 kg
[2018-09-27] MEDS ORDERED: CEPHALEXIN 250 MG CAP PO ONE (11:30)
[2018-09-27] MEDS ORDERED: traMADol HCL 50 MG TAB PO ONE (11:30)
[2018-09-27 15:24] VITALS: BP 123/64
== END 2018-09-27 15:29 | disposition home or self-care (01) ==
LOC: EDBD 11:26 → ER 11:26
DX: L03.116 Cellulitis of left lower limb (principal); L03.115 Cellulitis of right lower limb; F17.210 Nicotine dependence, cigarettes, uncomplicated

== ENCOUNTER 2018-10-12 19:20 | Emergency (ER) | payer MEDICAID ==
[~2018-10-12] VITALS: Ht 152.4 cm; Wt 151.5 kg
[2018-10-12 19:27] VITALS: BP 132/75
[2018-10-13] MEDS ORDERED: FUROSEMIDE 40 MG TAB PO ONE (03:00)
[2018-10-13] MEDS ORDERED: FLUCONAZOLE 100 MG TAB PO ONE (03:00)
[2018-10-13] MEDS ORDERED: POTASSIUM CHL 20 Meq TABLET PO ONE (03:00)
[2018-10-13] MEDS ORDERED: cefTRIAXone SOD 1,000 MG VL IM ONE (03:00)
[2018-10-13] MEDS ORDERED: DexAMETHasone SOD PHOS 10MG/1ML VIAL INJ IM ONE (03:15)
[2018-11-09] MEDS ORDERED: FURO40TA4 PO (11:26)
[2018-11-09] MEDS ORDERED: POTA10TA51 PO (11:26)
[2018-11-09] MEDS ORDERED: CLIN300C8 PO (11:26)
[2018-11-09] MEDS ORDERED: CIPR-217 PO (11:26)
[2018-11-09] MEDS ORDERED: CEPH500C PO (11:26)
[2018-11-09] MEDS ORDERED: DOXY100C2 PO (11:26)
== END 2018-10-13 03:39 | disposition home or self-care (01) ==
LOC: ER 19:20
DX: R60.9 Edema, unspecified (principal); E66.01 Morbid (severe) obesity due to excess calories; I87.2 Venous insufficiency (chronic) (peripheral); N76.0 Acute vaginitis; F17.210 Nicotine dependence, cigarettes, uncomplicated; I50.9 Heart failure, unspecified; Z91.14 Patient's other noncompliance with medication regimen; Z79.899 Other long term (current) drug therapy; Z59.0 Homelessness
CPT/HCPCS: 96372; 99283; J0696; J1100

== ENCOUNTER 2018-10-14 22:42 | Emergency (ER) | payer MEDICAID ==
[~2018-10-14] VITALS: Ht 175.3 cm; Wt 51.3 kg
[2018-10-14 22:51] VITALS: BP 127/74
[2018-11-09] MEDS ORDERED: CEPH500C PO (11:26)
[2018-11-09] MEDS ORDERED: FURO40TA4 PO (11:26)
[2018-11-09] MEDS ORDERED: CIPR-217 PO (11:26)
[2018-11-09] MEDS ORDERED: CLIN300C8 PO (11:26)
[2018-11-09] MEDS ORDERED: POTA10TA51 PO (11:26)
[2018-11-09] MEDS ORDERED: DOXY100C2 PO (11:26)
== END 2018-10-15 06:22 | disposition home or self-care (01) ==
LOC: EDBD 22:42 → ER 22:45
DX: R60.0 Localized edema (principal); I50.9 Heart failure, unspecified; F17.210 Nicotine dependence, cigarettes, uncomplicated; Z79.899 Other long term (current) drug therapy; Z91.14 Patient's other noncompliance with medication regimen

== ENCOUNTER 2018-11-04 18:55 | Emergency (ER) | payer MEDICAID ==
[~2018-11-04] VITALS: Ht 172.7 cm; Wt 158.8 kg
[2018-11-04 19:04] VITALS: BP 142/69
[2018-11-09] MEDS ORDERED: DOXY100C2 PO (11:26)
[2018-11-09] MEDS ORDERED: FURO40TA4 PO (11:26)
[2018-11-09] MEDS ORDERED: CIPR-217 PO (11:26)
[2018-11-09] MEDS ORDERED: CEPH500C PO (11:26)
[2018-11-09] MEDS ORDERED: POTA10TA51 PO (11:26)
[2018-11-09] MEDS ORDERED: CLIN300C8 PO (11:26)
== END 2018-11-05 00:43 | disposition home or self-care (01) ==
LOC: EDBD 18:55 → ER 18:57
DX: L03.116 Cellulitis of left lower limb (principal); L03.115 Cellulitis of right lower limb; B35.9 Dermatophytosis, unspecified; F17.210 Nicotine dependence, cigarettes, uncomplicated

== ENCOUNTER 2019-05-16 19:29 | Emergency (ER) | payer MEDICAID ==
[~2019-05-16] VITALS: Ht 167.6 cm; Wt 171.9 kg
[~2019-05-16 19:29] MED LIST changes: +DOXY100C2 PO; +POTA10TA51 PO
[2019-05-16 20:57] VITALS: BP 133/59
[2019-05-16] MEDS ORDERED: ALBUTEROL SULF 2.5 MG/0.5ML(0.5%) NEB SOLN NEB ONE (21:00)
[2019-05-16] MEDS ORDERED: IPRATROPIUM BROM 0.5 MG/2.5ML INH SOL NEB ONE (21:00)
== END 2019-05-16 21:36 | disposition home or self-care (01) ==
LOC: ER 19:30
DX: J45.901 Unspecified asthma with (acute) exacerbation (principal); I50.9 Heart failure, unspecified; F17.210 Nicotine dependence, cigarettes, uncomplicated
CPT/HCPCS: 94640; 99283; J7644

== ENCOUNTER → 2019-05-19 | Emergency (ER) | payer MEDICAID ==
[~2019-05-19] VITALS: Ht 167.6 cm; Wt 131.5 kg
[2019-05-20 00:25] VITALS: BP 104/51
== END | disposition home or self-care (01) ==
LOC: ER 19:05
DX: L03.116 Cellulitis of left lower limb (principal); L03.115 Cellulitis of right lower limb; I50.9 Heart failure, unspecified; F17.210 Nicotine dependence, cigarettes, uncomplicated; Z91.19 Patient's noncompliance with other medical treatment and regimen; Z79.899 Other long term (current) drug therapy; Z98.890 Other specified postprocedural states

== ENCOUNTER 2019-06-25 16:53 | Emergency (ER) | payer MEDICAID ==
[~2019-06-25] VITALS: Ht 165.1 cm; Wt 158.8 kg
[2019-06-26 00:07] LABS: Basophils # (auto) 0 10 ^3/uL (0-0.2); Basophils % (auto) 0.7 % (0.0-2.0); Eosinophils # (auto) 0.3 10 ^3/uL (0-0.8); Eosinophils % (auto) 3.8 % (0.0-7.0); Hemoglobin 11.6 g/dL (12.2-16.2); Lymphocytes # (auto) 1.1 10 ^3/uL (0.4-5.4); Lymphocytes % (auto) 16.6 % (10.0-50.0); Mean Corpuscular Hemoglobin 27.2 pg (28.0-32.0); Mean Corpuscular Hgb Conc. 32.3 g/dL (32.0-36.0); Mean Corpuscular Volume 84.3 fL (80.0-100.0); Monocytes # (auto) 0.6 10 ^3/uL (0-1.3); Monocytes % (auto) 8.6 % (0.0-12.0); Neutrophils # (auto) 4.8 10 ^3/uL (1.6-8.6); Neutrophils % (auto) 70.3 % (37.0-80.0); Platelet Count (auto) 276 10^3/uL (140-450); Red Blood Cells 4.27 10^6/uL (4.0-5.20); Red Cell Distribution Width 16.2 % (11.8-14.3); White Blood Cell 6.9 10^3/uL (4.4-10.8)
[2019-06-26 00:27] LABS: Albumin 2.9 g/dL (3.4-5.0); Anion Gap 8 (5-15); Blood Urea Nitrogen 11 mg/dL (7-18); Calcium 7.9 mg/dL (8.5-10.1); Carbon Dioxide 23 mmol/L (21-32); Chloride 105 mmol/L (98-107); Glucose 109 mg/dL (74-106); Potassium 3.9 mmol/L (3.5-5.1); Sodium 136 mmol/L (136-145)
[2019-06-26 00:29] LABS: Alanine Aminotransferase 14 U/L (13-56); Aspartate Aminotransferase 12 U/L (15-37); BUN/Creatinine Ratio 15.3; GFR African American 112 mL/min; GFR Non-African American 93 mL/min
[2019-06-26 00:34] LABS: Alkaline Phosphatase 63 U/L (45-117); Bilirubin, Total 0.4 mg/dL (0.2-1.0); Total Protein 7.2 g/dL (6.4-8.2)
[2019-06-26] MEDS ORDERED: ACETAMINOPHEN 325 MG TAB PO ONE (01:15)
[2019-06-26 02:14] VITALS: BP 108/55
== END 2019-06-26 02:17 | disposition home or self-care (01) ==
LOC: EDBD 16:53 → ER 16:53
DX: L03.116 Cellulitis of left lower limb (principal); L03.115 Cellulitis of right lower limb; I50.9 Heart failure, unspecified; F17.210 Nicotine dependence, cigarettes, uncomplicated
CPT/HCPCS: 36415; 71045; 80053; 83880; 84484; 85025; 93005

== ENCOUNTER 2019-07-18 11:01 | Emergency (ER) | payer MEDICAID ==
[~2019-07-18] VITALS: Ht 170.2 cm; Wt 158.8 kg
[2019-07-18 11:03] VITALS: BP 129/98
[2019-07-18 11:38] LABS: Basophils # (auto) 0 10 ^3/uL (0-0.2); Basophils % (auto) 0.5 % (0.0-2.0); Eosinophils # (auto) 0.1 10 ^3/uL (0-0.8); Lymphocytes # (auto) 0.8 10 ^3/uL (0.4-5.4); Mean Corpuscular Hemoglobin 26.9 pg (28.0-32.0); Mean Corpuscular Hgb Conc. 32.4 g/dL (32.0-36.0); Mean Corpuscular Volume 83.1 fL (80.0-100.0); Monocytes # (auto) 0.5 10 ^3/uL (0-1.3)
[2019-07-18 11:41] LABS: Lymphocytes % (auto) 11.8 % (10.0-50.0); Monocytes % (auto) 6.8 % (0.0-12.0); Neutrophils # (auto) 5.5 10 ^3/uL (1.6-8.6); Neutrophils % (auto) 78.9 % (37.0-80.0); Platelet Count (auto) 299 10^3/uL (140-450); Red Blood Cells 4.46 10^6/uL (4.0-5.20); Red Cell Distribution Width 16.1 % (11.8-14.3); White Blood Cell 6.9 10^3/uL (4.4-10.8)
[2019-07-18 11:48] LABS: Albumin 3.2 g/dL (3.4-5.0); Calcium 8.4 mg/dL (8.5-10.1); Potassium 3.9 mmol/L (3.5-5.1)
[2019-07-18 11:51] LABS: BUN/Creatinine Ratio 16.3; Bilirubin, Total 0.3 mg/dL (0.2-1.0); Total Protein 7.8 g/dL (6.4-8.2)
== END 2019-07-18 13:20 | disposition home or self-care (01) ==
LOC: ER 11:01 → EDBD 11:01 → ER 13:20
DX: L03.115 Cellulitis of right lower limb (principal); L03.116 Cellulitis of left lower limb; R10.9 Unspecified abdominal pain; I50.9 Heart failure, unspecified; F17.210 Nicotine dependence, cigarettes, uncomplicated; Z59.0 Homelessness; Z79.899 Other long term (current) drug therapy
CPT/HCPCS: 36415; 80053; 85025

== ENCOUNTER 2019-08-06 12:40 | Emergency (ER) | payer MEDICAID ==
[~2019-08-06] VITALS: Ht 152.4 cm; Wt 154.2 kg
[2019-08-06 16:00] LABS: Urine Bacteria NONE SEEN /hpf (None Seen); Urine Blood Negative /uL (Negative); Urine Mucus FEW (None Seen); Urine Specific Gravity 1.025 (1.001-1.035); Urine WBC 1 /hpf (0 - 5)
[2019-08-06 16:12] LABS: Basophils # (auto) 0 10 ^3/uL (0-0.2); Basophils % (auto) 0.3 % (0.0-2.0); Eosinophils # (auto) 0.1 10 ^3/uL (0-0.8); Eosinophils % (auto) 1.2 % (0.0-7.0); Hemoglobin 12.2 g/dL (12.2-16.2); Monocytes # (auto) 0.5 10 ^3/uL (0-1.3)
[2019-08-06 16:17] LABS: Hematocrit 37.1 % (36.0-46.0); Lymphocytes # (auto) 1.1 10 ^3/uL (0.4-5.4); Lymphocytes % (auto) 12.4 % (10.0-50.0); Mean Corpuscular Hemoglobin 27.2 pg (28.0-32.0); Mean Corpuscular Hgb Conc. 32.8 g/dL (32.0-36.0); Mean Corpuscular Volume 82.8 fL (80.0-100.0); Monocytes % (auto) 6.1 % (0.0-12.0); Neutrophils # (auto) 7.1 10 ^3/uL (1.6-8.6); Platelet Count (auto) 288 10^3/uL (140-450); Red Blood Cells 4.48 10^6/uL (4.0-5.20); Red Cell Distribution Width 15.5 % (11.8-14.3); White Blood Cell 8.8 10^3/uL (4.4-10.8)
[2019-08-06 16:29] LABS: Potassium 4.2 mmol/L (3.5-5.1)
[2019-08-06 16:47] LABS: Albumin 3.4 g/dL (3.4-5.0); BUN/Creatinine Ratio 14.9; Bilirubin, Total 0.3 mg/dL (0.2-1.0); Calcium 8.6 mg/dL (8.5-10.1); Total Protein 7.8 g/dL (6.4-8.2)
[2019-08-06 17:30] VITALS: BP 135/71
== END 2019-08-06 17:33 | disposition home or self-care (01) ==
LOC: ER 12:40 → EDBD 12:40 → ER 17:33
DX: K29.70 Gastritis, unspecified, without bleeding (principal); F17.210 Nicotine dependence, cigarettes, uncomplicated; Z59.0 Homelessness
CPT/HCPCS: 36415; 80053; 81001; 82150; 83690; 84702; 85025

== ENCOUNTER 2019-08-17 16:07 | Emergency (ER) | payer MEDICAID ==
[~2019-08-17] VITALS: Ht 170.2 cm; Wt 181.4 kg
[2019-08-17 23:10] LABS: Basophils # (auto) 0 10 ^3/uL (0-0.2); Basophils % (auto) 0.6 % (0.0-2.0); Eosinophils # (auto) 0.1 10 ^3/uL (0-0.8); Eosinophils % (auto) 1.4 % (0.0-7.0); Hematocrit 36.9 % (36.0-46.0); Hemoglobin 11.7 g/dL (12.2-16.2); Lymphocytes # (auto) 1.1 10 ^3/uL (0.4-5.4); Lymphocytes % (auto) 14.8 % (10.0-50.0); Mean Corpuscular Hemoglobin 26.5 pg (28.0-32.0); Mean Corpuscular Hgb Conc. 31.8 g/dL (32.0-36.0); Mean Corpuscular Volume 83.4 fL (80.0-100.0); Monocytes # (auto) 0.5 10 ^3/uL (0-1.3); Monocytes % (auto) 7.1 % (0.0-12.0); Neutrophils # (auto) 5.4 10 ^3/uL (1.6-8.6); Neutrophils % (auto) 76.1 % (37.0-80.0); Nucleated Red Blood Cells % 0.1 %; Platelet Count (auto) 295 10^3/uL (140-450); Red Blood Cells 4.42 10^6/uL (4.0-5.20); Red Cell Distribution Width 15.9 % (11.8-14.3); White Blood Cell 7.1 10^3/uL (4.4-10.8)
[2019-08-17 23:27] LABS: Albumin 3.3 g/dL (3.4-5.0); Calcium 8.5 mg/dL (8.5-10.1); Potassium 3.7 mmol/L (3.5-5.1)
[2019-08-17 23:31] LABS: BUN/Creatinine Ratio 16.3; Bilirubin, Total 0.5 mg/dL (0.2-1.0); Total Protein 7.7 g/dL (6.4-8.2)
[2019-08-18 00:15] VITALS: BP 143/74
[2019-08-18] MEDS ORDERED: IBUPROFEN 800 MG TAB PO ONE (03:45)
== END 2019-08-18 03:32 | disposition home or self-care (01) ==
LOC: EDBD 16:07 → ER 16:07
DX: S39.012A Strain of muscle, fascia and tendon of lower back, initial encounter (principal); F41.9 Anxiety disorder, unspecified; Z79.899 Other long term (current) drug therapy; X58.XXXA Exposure to other specified factors, initial encounter; Y93.89 Activity, other specified; Y92.89 Other specified places as the place of occurrence of the external cause; Y99.8 Other external cause status; E66.01 Morbid (severe) obesity due to excess calories
CPT/HCPCS: 36415; 80053; 83880; 85025; 85379

== ENCOUNTER 2019-08-25 13:10 | Emergency (ER) | payer MEDICAID ==
[~2019-08-25] VITALS: Ht 167.6 cm; Wt 158.8 kg
[2019-08-25 13:59] LABS: Basophils # (auto) 0 10 ^3/uL (0-0.2); Basophils % (auto) 0.5 % (0.0-2.0); Eosinophils # (auto) 0.2 10 ^3/uL (0-0.8); Eosinophils % (auto) 3.4 % (0.0-7.0); Hemoglobin 11.6 g/dL (12.2-16.2); Lymphocytes # (auto) 0.8 10 ^3/uL (0.4-5.4); Monocytes # (auto) 0.4 10 ^3/uL (0-1.3); Neutrophils # (auto) 4.9 10 ^3/uL (1.6-8.6); Neutrophils % (auto) 77.9 % (37.0-80.0); White Blood Cell 6.3 10^3/uL (4.4-10.8)
[2019-08-25 14:01] LABS: Hematocrit 36.9 % (36.0-46.0); Lymphocytes % (auto) 12.4 % (10.0-50.0); Mean Corpuscular Hgb Conc. 31.5 g/dL (32.0-36.0); Mean Corpuscular Volume 82.8 fL (80.0-100.0); Monocytes % (auto) 5.8 % (0.0-12.0); Platelet Count (auto) 240 10^3/uL (140-450); Red Blood Cells 4.46 10^6/uL (4.0-5.20)
[2019-08-25 14:22] LABS: Albumin 3.2 g/dL (3.4-5.0); Calcium 8.9 mg/dL (8.5-10.1); Potassium 4.1 mmol/L (3.5-5.1)
[2019-08-25 14:27] LABS: BUN/Creatinine Ratio 19.8; Bilirubin, Total 0.3 mg/dL (0.2-1.0); Total Protein 7.6 g/dL (6.4-8.2)
[2019-08-25 22:30] VITALS: BP 97/71
== END 2019-08-25 23:21 | disposition home or self-care (01) ==
LOC: EDBD 13:10 → ER 13:10
DX: R10.9 Unspecified abdominal pain (principal); F17.210 Nicotine dependence, cigarettes, uncomplicated; I50.9 Heart failure, unspecified; F41.9 Anxiety disorder, unspecified; Z79.899 Other long term (current) drug therapy
CPT/HCPCS: 36415; 80053; 83690; 85025

== ENCOUNTER 2019-10-16 07:21 | Emergency (ER) | payer MEDICAID ==
[~2019-10-16] VITALS: Ht 167.6 cm; Wt 136.1 kg
[2019-10-16] MEDS ORDERED: SODIUM CHLORIDE 0.9% 1,000 ML IV ONE ×2 (07:31)
[2019-10-16 08:00] LABS: Basophils # (auto) 0 10 ^3/uL (0-0.2); Eosinophils # (auto) 0 10 ^3/uL (0-0.8); Lymphocytes # (auto) 0.8 10 ^3/uL (0.4-5.4); Lymphocytes % (auto) 7.5 % (10.0-50.0); Monocytes # (auto) 0.5 10 ^3/uL (0-1.3)
[2019-10-16 08:02] LABS: Basophils % (auto) 0.4 % (0.0-2.0); Eosinophils % (auto) 0.1 % (0.0-7.0); Hematocrit 41.6 % (36.0-46.0); Hemoglobin 13.2 g/dL (12.2-16.2); Mean Corpuscular Hemoglobin 25.7 pg (28.0-32.0); Mean Corpuscular Hgb Conc. 31.8 g/dL (32.0-36.0); Mean Corpuscular Volume 81.1 fL (80.0-100.0); Monocytes % (auto) 4.6 % (0.0-12.0); Neutrophils # (auto) 9.1 10 ^3/uL (1.6-8.6); Neutrophils % (auto) 87.4 % (37.0-80.0); Platelet Count (auto) 293 10^3/uL (140-450); Red Blood Cells 5.13 10^6/uL (4.0-5.20); Red Cell Distribution Width 17.2 % (11.8-14.3); White Blood Cell 10.4 10^3/uL (4.4-10.8)
[2019-10-16 08:21] LABS: Albumin 3.2 g/dL (3.4-5.0); Calcium 8.3 mg/dL (8.5-10.1); Potassium 3.7 mmol/L (3.5-5.1)
[2019-10-16 08:26] LABS: BUN/Creatinine Ratio 16.5; Bilirubin, Total 0.5 mg/dL (0.2-1.0); Total Protein 7.7 g/dL (6.4-8.2)
[2019-10-16 11:18] VITALS: BP 135/60
== END 2019-10-16 12:18 | disposition home or self-care (01) ==
LOC: EDBD 07:21 → ER 07:21
DX: R10.84 Generalized abdominal pain (principal); R11.2 Nausea with vomiting, unspecified; F41.9 Anxiety disorder, unspecified; E44.1 Mild protein-calorie malnutrition; Z68.42 Body mass index [BMI] 45.0-49.9, adult
CPT/HCPCS: 36415; 80053; 85025; 96360; 99283; J7030

== ENCOUNTER 2020-01-03 21:17 | Emergency (ER) | payer MEDICAID ==
[~2020-01-03] VITALS: Ht 149.9 cm; Wt 181.4 kg
[2020-01-04 02:05] VITALS: BP 108/58
[2020-01-04] MEDS ORDERED: SODIUM CHLORIDE 0.9% 1,000 ML IV ONE (03:00)
[2020-01-04] MEDS ORDERED: cefTRIAXone 1GM/50ML D5W 50 ML IV ONE (03:00)
[2020-01-04] MEDS ORDERED: cefTRIAXone SOD 1,000 MG VL IM ONE (03:45)
== END 2020-01-04 04:26 | disposition home or self-care (01) ==
LOC: ER 21:17 → EDBD 21:17 → ER 01-04 04:26
DX: L03.116 Cellulitis of left lower limb (principal); L03.115 Cellulitis of right lower limb; R60.0 Localized edema; E66.9 Obesity, unspecified; F41.9 Anxiety disorder, unspecified; D64.9 Anemia, unspecified; F20.9 Schizophrenia, unspecified; I11.0 Hypertensive heart disease with heart failure; I50.9 Heart failure, unspecified; F17.210 Nicotine dependence, cigarettes, uncomplicated; Z68.45 Body mass index [BMI] 70 or greater, adult; Z79.899 Other long term (current) drug therapy; Z98.890 Other specified postprocedural states; Z59.0 Homelessness
CPT/HCPCS: 96372; 99283; J0696; J7030

== ENCOUNTER 2021-02-19 14:19 | Emergency (ER) | payer MEDICAID ==
[~2021-02-19] VITALS: Ht 167.6 cm; Wt 117.9 kg
[2021-02-19 14:41] VITALS: BP 120/75
[2021-02-19 16:03] LABS: Basophils # (auto) 0.1 10 ^3/uL (0-0.2); Basophils % (auto) 0.6 % (0.0-2.0); Eosinophils # (auto) 0.1 10 ^3/uL (0-0.8); Eosinophils % (auto) 1.4 % (0.0-7.0); Hematocrit 35.9 % (36.0-46.0); Hemoglobin 11.6 g/dL (12.2-16.2); Lymphocytes % (auto) 12.3 % (10.0-50.0); Mean Corpuscular Hemoglobin 27.1 pg (28.0-32.0); Mean Corpuscular Hgb Conc. 32.3 g/dL (32.0-36.0); Monocytes # (auto) 0.6 10 ^3/uL (0-1.3); Neutrophils # (auto) 6.6 10 ^3/uL (1.6-8.6); Neutrophils % (auto) 78.7 % (37.0-80.0); Red Blood Cells 4.28 10^6/uL (4.0-5.20); Red Cell Distribution Width 15.2 % (11.8-14.3); White Blood Cell 8.4 10^3/uL (4.4-10.8)
[2021-02-19 16:22] LABS: Alanine Aminotransferase 15 U/L (13-56); Albumin 3.1 g/dL (3.4-5.0); Anion Gap 9 (5-15); Aspartate Aminotransferase 13 U/L (15-37); BUN/Creatinine Ratio 18.1; Blood Urea Nitrogen 13 mg/dL (7-18); Calcium 8.1 mg/dL (8.5-10.1); Carbon Dioxide 26 mmol/L (21-32); Chloride 106 mmol/L (98-107); GFR African American 112 mL/min; GFR Non-African American 92 mL/min; Glucose 106 mg/dL (74-106); Magnesium 2.1 mg/dL (1.6-2.6); Potassium 3.8 mmol/L (3.5-5.1); Sodium 141 mmol/L (136-145)
[2021-02-19 16:24] LABS: Alkaline Phosphatase 61 U/L (45-117); Bilirubin, Total 0.5 mg/dL (0.2-1.0); Total Protein 6.9 g/dL (6.4-8.2)
== END 2021-02-20 03:39 | disposition left against medical advice (07) ==
LOC: EDBD 14:19 → ER 14:19
DX: R10.2 Pelvic and perineal pain (principal); E66.01 Morbid (severe) obesity due to excess calories; F17.210 Nicotine dependence, cigarettes, uncomplicated; Z68.41 Body mass index [BMI] 40.0-44.9, adult
CPT/HCPCS: 36415; 80053; 83735; 85025

== ENCOUNTER 2021-02-21 20:19 | Emergency (ER) | payer MEDICAID ==
[~2021-02-21] VITALS: Ht 160 cm; Wt 183.9 kg
[2021-02-21 21:11] VITALS: BP 123/69
[2021-02-22 08:53] LABS: Albumin 3.4 g/dL (3.4-5.0); Calcium 8.7 mg/dL (8.5-10.1); Magnesium 2.8 mg/dL (1.6-2.6); Potassium 3.9 mmol/L (3.5-5.1)
[2021-02-22 09:00] LABS: BUN/Creatinine Ratio 22.4; Bilirubin, Total 0.4 mg/dL (0.2-1.0); Total Protein 7.7 g/dL (6.4-8.2)
[2021-02-22] MEDS ORDERED: CEPH-322 PO (10:26)
== END 2021-02-22 10:38 | disposition home or self-care (01) ==
LOC: ER 20:20
DX: R22.43 Localized swelling, mass and lump, lower limb, bilateral (principal); M79.605 Pain in left leg; M79.604 Pain in right leg; F41.9 Anxiety disorder, unspecified; I50.9 Heart failure, unspecified; F20.9 Schizophrenia, unspecified; F17.210 Nicotine dependence, cigarettes, uncomplicated; Z86.2 Personal history of diseases of the blood and blood-forming organs and certain disorders involving the immune mechanism; Z79.899 Other long term (current) drug therapy
CPT/HCPCS: 36415; 71045; 80053; 83605; 83735; 83880; 84484; 93005

== ENCOUNTER 2021-02-22 20:17 | Emergency (ER) | payer MEDICAID ==
[~2021-02-22] VITALS: Ht 167.6 cm; Wt 129.3 kg
[~2021-02-22 20:17] MED LIST changes: +CEPH-322 PO
[2021-02-22 20:29] VITALS: BP 144/73
[2021-02-22 22:27] LABS: Basophils # (auto) 0.1 10 ^3/uL (0-0.2); Basophils % (auto) 0.6 % (0.0-2.0); Eosinophils # (auto) 0.2 10 ^3/uL (0-0.8); Eosinophils % (auto) 2.5 % (0.0-7.0); Hemoglobin 11.8 g/dL (12.2-16.2); Lymphocytes # (auto) 1.1 10 ^3/uL (0.4-5.4); Lymphocytes % (auto) 12.3 % (10.0-50.0); Mean Corpuscular Hemoglobin 27.6 pg (28.0-32.0); Mean Corpuscular Hgb Conc. 32.8 g/dL (32.0-36.0); Mean Corpuscular Volume 84.1 fL (80.0-100.0); Monocytes # (auto) 0.5 10 ^3/uL (0-1.3); Monocytes % (auto) 5.8 % (0.0-12.0); Neutrophils # (auto) 7.2 10 ^3/uL (1.6-8.6); Neutrophils % (auto) 78.8 % (37.0-80.0); Nucleated Red Blood Cells % 0.1 %; Red Blood Cells 4.28 10^6/uL (4.0-5.20); Red Cell Distribution Width 15.1 % (11.8-14.3); White Blood Cell 9.2 10^3/uL (4.4-10.8)
[2021-02-22 22:41] LABS: Albumin 3.1 g/dL (3.4-5.0); Calcium 8.2 mg/dL (8.5-10.1); Potassium 3.9 mmol/L (3.5-5.1)
[2021-02-22 22:44] LABS: BUN/Creatinine Ratio 16.9; Bilirubin, Total 0.3 mg/dL (0.2-1.0); Total Protein 6.7 g/dL (6.4-8.2)
== END 2021-02-23 05:45 | disposition home or self-care (01) ==
LOC: ER 20:18
DX: L03.115 Cellulitis of right lower limb (principal); L03.116 Cellulitis of left lower limb; R60.0 Localized edema; I50.9 Heart failure, unspecified; F17.210 Nicotine dependence, cigarettes, uncomplicated; Z86.2 Personal history of diseases of the blood and blood-forming organs and certain disorders involving the immune mechanism; Z79.2 Long term (current) use of antibiotics; Z79.899 Other long term (current) drug therapy
CPT/HCPCS: 36415; 80053; 83880; 85025